=== PATIENT | female | born 1950 | race African-American/Black ===

== ENCOUNTER 2016-08-11 08:17 | Emergency (ER) | payer MEDICARE, OTHER ==
[~2016-08-11] VITALS: Ht 167.6 cm; Wt 54.4 kg
[~2016-08-11 08:17] MED LIST: AMLODIPINE BESYL5 MG; AMLODIPINE BESYL5 MG ORAL; ATENOLOL100 MG; ATENOLOL100 MG PO; ATIVAN1 MG ORAL; CARBIDOPA-LEVO1 EAC1; CLARITIN10 M2 ORAL; CLONIDINE1 EACH; CYCLOBENZAPRINE10 MG ORAL; DICYCLOMINE HCL20 M1; DICYCLOMINE HCL20 M1 PO; DILAUDID8 MG PO; DIOVAN40 MG PO; GLUCOPHAGE500 MG ORAL; HYDROCODON-ACE1 EA13; HYDROMORPHONE HC4 M1; JANUVIA100 MG; JANUVIA100 MG ORAL; KENALOG 0.1% CR15 GM; LANTUS SOL100 UNIT/1 SUBQ; METFORMIN HCL500 M1; NEURONTIN100 MG ORAL; NKM; NORCO 10/3251 EA ORAL; NORVASC5 MG ORAL; NOVOLOG100 UNIT/3 SUBQ; NOVOLOG100 UNITS1 SUBQ; PANCRELIPASE ORAL; PANTOPRAZOLE SO40 MG; PAROXETINE HCL40 MG; PAXIL40 MG PO; PROTONIX20 MG ORAL; PROTONIX40 MG ORAL; RANITIDINE HCL300 MG; SUMATRIPTAN SU100 MG; TOPIRAMATE25 MG ORAL; TRAMADOL HCL50 MG; TRAMADOL HCL50 MG ORAL; TRAZODONE HCL50 MG ORAL; ULTRAM50 MG ORAL; VICODIN ES 7.51 EACH PO; ZESTRIL20 MG ORAL
--- NOTE | 2016-08-11 08:46 | Emergency Room Report ---
History of Present Illness General Chief Complaint: Multiple Trauma/Fall Source: Patient Present Illness HPI Patient present with complaints of left-sided rib pain She reports that she has fallen out of her bed several times over the past 7 days Patient feels very weak Denies any headache denies any neck pain Denies any shortness of breath Pain is 8/10 Worse with touch Denies any vomiting or diarrhea Patient's description of the fall, sounds to be secondary to weakness however she does also report lightheadedness and what she describes as 'falling out' Not sure if this is regarding syncope Allergies: Coded Allergies: ACETAMINOPHEN (Verified Allergy, Severe, 12/18/12) ASPIRIN (Verified Allergy, Unknown, 11/10/10) CODEINE (Verified Allergy, Unknown, RASH, 10/25/11) MEPERIDINE (Verified Allergy, Unknown, 11/10/10) PENICILLINS (Verified Allergy, Unknown, RASH, 10/25/11) SHELLFISH (Verified Allergy, Unknown, 11/10/10) SULFA (SULFONAMIDE ANTIBIOTICS) (Verified Allergy, Unknown, 11/10/10) Uncoded Allergies: PENICILLIN (Allergy, Unknown, 09/22/15) Patient History Past Medical History: see triage record Pertinent Family History: none Reviewed Nursing Documentation: PMH: Agreed, PSxH: Agreed Nursing Documentation-PMH Hx Cardiac Problems: No Hx Hypertension: Yes Hx Pacemaker: No Hx Asthma: No Hx COPD: No Hx Diabetes: No Hx Cancer: No Hx Gastrointestinal Problems: Yes - pancreatitis Hx Dialysis: No History Of Psychiatric Problem: No Hx Neurological Problems: No Hx Cerebrovascular Accident: No Hx Parkinson's Disease: Yes Hx Seizures: No Hx Dizziness: Yes Hx Headaches: Yes Review of Systems All Other Systems: negative except mentioned in HPI Physical Exam Vital Signs Date Time Temp Pulse Resp B/P Pulse Ox O2 Delivery O2 Flow Rate FiO2 08/11/16 08:34 97.9 78 18 130/60 99 Room Air Sp02 EP Interpretation: reviewed, normal General Appearance: other - Patient appears weak and fragile Head: normocephalic, atraumatic Eyes: bilateral eye EOMI, bilateral eye PERRL ENT: hearing grossly normal, normal pharynx, TMs + canals normal, uvula midline Neck: full range of motion, supple, no meningismus, no bony tend Respiratory: lungs clear, normal breath sounds, no rhonchi, no respiratory distress, no retraction, no accessory muscle use Cardiovascular #1: normal peripheral pulses, regular rate, rhythm, no edema, no gallop, no JVD, no murmur Gastrointestinal: normal bowel sounds, non tender, soft, no mass, no organomegaly, non-distended, no guarding, no hernia, no pulsatile mass, no rebound Genitourinary: no CVA tenderness Musculoskeletal: other - Patient had discomfort on palpation of the left side of the rib cage area, diffusely lower rib mid chest area Neurologic: oriented x3, responsive, metal burnisher III-XII nml as tested, motor strength/ tone normal, sensory intact Psychiatric: mood/affect normal Skin: normal color, palpation normal, jaundice Lymphatic: normal inspection, no adenopathy Medical Decision Making Diagnostic Impression: Primary Impression: Contusion Additional Impression: opioid dependence ER Course Given the patient's multiple falls and what she describes as'falling out' Patient also appearing somewhat lethargic and possibly overmedicated I was concerned about the patient's presentation Cardiac workup was initiated Patient also requiring admission for further evaluation as I was concerned about her outpatient scenario Patient however at this time states that she had not received any pain medication and was tired of waiting Family member has arrived and the patient states that she wants to go home Patient is aware that going home at this time come to worsening symptoms further falls which to me to other trauma and injuries However the patient is awake at this time family is also at bedside and patient is leaving AGAINST MEDICAL ADVICE Labs Test 08/11/16 09:30 08/11/16 10:00 White Blood Count 5.5 K/UL (4.8-10.8) Red Blood Count 3.86 M/UL (4.20-5.40) Hemoglobin 12.0 G/DL (12.0-16.0) Hematocrit 37.5 % (37.0-47.0) Mean Corpuscular Volume 97 FL (80-99) Mean Corpuscular Hemoglobin 31.0 PG (27.0-31.0) Mean Corpuscular Hemoglobin Concent 32.0 G/DL (32.0-36.0) Red Cell Distribution Width 12.4 % (11.6-14.8) Platelet Count 302 K/UL (150-450) Mean Platelet Volume 6.2 FL (6.5-10.1) Neutrophils (%) (Auto) 58.1 % (45.0-75.0) Lymphocytes (%) (Auto) 29.8 % (20.0-45.0) Monocytes (%) (Auto) 9.0 % (1.0-10.0) Eosinophils (%) (Auto) 1.3 % (0.0-3.0) Basophils (%) (Auto) 1.8 % (0.0-2.0) Sodium Level 141 mEQ/L (135-145) Potassium Level 4.5 mEQ/L (3.4-4.9) Chloride Level 101 mEQ/L (98-107) Carbon Dioxide Level 20 mEQ/L (20-30) Anion Gap 20 (5-15) Blood Urea Nitrogen 21 mg/dL (7-23) Creatinine 1.3 mg/dL (0.5-0.9) Estimat Glomerular Filtration Rate 49.3 mL/min (>60) Glucose Level 219 mg/dL (74-106) Calcium Level 9.5 mg/dL (8.6-10.2) Total Bilirubin 0.3 mg/dL (0.0-1.2) Aspartate Amino Transf (AST/SGOT) 20 U/L (5-40) Alanine Aminotransferase (ALT/SGPT) 11 U/L (3-33) Alkaline Phosphatase 62 U/L (35-104) Total Creatine Kinase 52 U/L (26-140) Creatine Kinase MB 1.8 ng/mL (< 3.8) Creatine Kinase MB Relative Index 3.4 Troponin I < 0.30 ng/mL (<=0.30) Total Protein 7.8 g/dL (6.6-8.7) Albumin 4.1 g/dL (3.5-5.2) Globulin 3.7 g/dL Albumin/Globulin Ratio 1.1 (1.0-2.7) Urine Color Yellow Urine Appearance Clear Urine pH 5 (4.5-8.0) Urine Specific [place] 1.020 (1.005-1.035) Urine Protein 1+ (NEGATIVE) Urine Glucose (UA) Negative (NEGATIVE) Urine Ketones Negative (NEGATIVE) Urine Occult Blood Negative (NEGATIVE) Urine Nitrite Negative (NEGATIVE) Urine Bilirubin Negative (NEGATIVE) Urine Urobilinogen 1 MG/DL (0.0-1.0) Urine Leukocyte Esterase 3+ (NEGATIVE) Urine RBC 0-2 /HPF (0 - 2) Urine WBC 2-4 /HPF (0 - 2) Urine Squamous Epithelial Cells Few /LPF (NONE/OCC) Urine Bacteria Few /HPF (NONE) EKG Diagnostic Results Rate: normal Rhythm: NSR ST Segments: other - Nonspecific ST and T-wave changes Rhythm Strip Diag. Results EP Interpretation: yes Rate: 77 Rhythm: NSR, no PVC's, no ectopy Chest X-Ray Diagnostic Results EP Interpretation: Yes Findings: no consolidation, no effusion, no pneumothorax Number of Views: 1 Last Vital Signs Date Time Temp Pulse Resp B/P Pulse Ox O2 Delivery O2 Flow Rate FiO2 08/11/16 08:34 97.9 78 18 130/60 99 Room Air Status: improved Disposition: AGAINST MEDICAL ADVICE Condition: Improved EMIGDIO FUENTES D.O. Aug 11, 2016 08:46
[2016-08-11 09:30] VITALS: BP 139/71
[2016-08-11 10:14] LABS: BASOPHILS % (AUTO) 1.8 % (0.0-2.0); EOSINOPHILS % (AUTO) 1.3 % (0.0-3.0); LYMPHOCYTES % (AUTO) 29.8 % (20.0-45.0); MEAN CORPUSCULAR VOLUME 97 FL (80-99); MEAN PLATELET VOLUME 6.2 FL (6.5-10.1); NEUTROPHILS % (AUTO) 58.1 % (45.0-75.0); PLATELET COUNT 302 K/UL (150-450); RED BLOOD COUNT 3.86 M/UL (4.20-5.40); RED CELL DISTRIBUTION WIDTH 12.4 % (11.6-14.8); WHITE BLOOD COUNT 5.5 K/UL (4.8-10.8)
[2016-08-11] MEDS ORDERED: Morphine Sulfate 2mg/ml Inj IVP ONE (10:15)
[2016-08-11 10:18] LABS: APPEARANCE,URINE CLEAR; KETONES,URINE NEGATIVE (NEGATIVE); LEUKOCYTE ESTERASE ,URINE 3+ (NEGATIVE); NITRITE,URINE NEGATIVE (NEGATIVE); PH,URINE 5 (4.5-8.0); PROTEIN,URINE 1+ (NEGATIVE); UROBILINOGEN,URINE 1 MG/DL (0.0-1.0)
[2016-08-11 10:28] LABS: ALBUMIN/GLOBULIN RATIO 1.1 (1.0-2.7); CALCIUM 9.5 mg/dL (8.6-10.2); CREATININE 1.3 mg/dL (0.5-0.9); GLOMERULAR FILTRATION RATE 49.3 mL/min (>60); POTASSIUM 4.5 mEQ/L (3.4-4.9); TOTAL PROTEIN 7.8 g/dL (6.6-8.7); TROPONIN I < 0.30 ng/mL (<=0.30)
[2016-08-11 10:30] VITALS: BP 164/70
[2016-08-11 10:35] LABS: BACTERIA,URINE FEW /HPF; RBC,URINE 0-2 /HPF (0 - 2); SQUAMOUS EPITHELIAL CELL,UR FEW /LPF (NONE/OCC)
[2016-08-11 10:38] LABS: CKMB 1.8 ng/mL (< 3.8)
[2016-08-11 10:40] VITALS: BP 164/70
--- NOTE | 2016-08-15 11:45 | Diagnostic Imaging Report ---
Indication: Chest Pain Comparison: 08/20/13 A single view chest radiograph was obtained. Findings: Cardiomediastinal appearance is within normal limits for age. Pulmonary vascularity is appropriate. The diaphragmatic contour is smooth and costophrenic angles are sharp. No pleural effusions are identified. The bones are osteopenic. Impression: No acute findings
== END 2016-08-11 10:40 | disposition left against medical advice (07) ==
LOC: EMR 09:01 → EDBEDREQ 09:27 → CANBEDREQ 10:37 → EMR 10:40
DX: S20.219A Contusion of unspecified front wall of thorax, initial encounter (principal); W06.XXXA Fall from bed, initial encounter; Y92.9 Unspecified place or not applicable; F11.20 Opioid dependence, uncomplicated; I10 Essential (primary) hypertension; Z87.19 Personal history of other diseases of the digestive system; G20 Parkinson's disease; Z88.2 Allergy status to sulfonamides; Z88.6 Allergy status to analgesic agent; Z91.013 Allergy to seafood
CPT/HCPCS: 36415; 71010; 80053; 81003; 82550; 82553; 84484; 85025; 93005; 96374

== ENCOUNTER 2017-02-11 13:10 | Emergency (ER) | payer MEDICARE, OTHER ==
[~2017-02-11] VITALS: Ht 167.6 cm; Wt 55.3 kg
[2017-02-11 13:50] VITALS: BP 137/75
--- NOTE | 2017-02-11 15:03 | Diagnostic Imaging Report ---
Indication: Back pain Technique: Continuous helical transaxial imaging of the lumbar spine was obtained from the lung bases to the pubic symphysis. No IV contrast was administered. Coronal 2-D reformats were also obtained. Study obtained in a Siemens sensation [address] Total Dose length Product (DLP): [address] Dose Index Volume (CTDIvol): 11 mGy Comparison: None Findings: The patient is had laminectomies at L4 and L5. 3 level instrumented fusion with pedicle screws and fusion rods are demonstrated at L4, L5 and S1 bilaterally. Hardware position and alignment appear satisfactory. The study was done without intravenous or intrathecal contrast. There is no obvious fluid collection identified. There is no obvious soft tissue swelling. There is no evidence of an acute fracture. The bones are osteopenic. Aorta is moderately calcified. Impression: No acute injury identified. Status post L4-5 and L5-S1 posterior fusion and laminectomy. Hardware alignment and position appear satisfactory. Osteopenia Atherosclerotic disease The CT scanner at [facility] is accredited by the [employer] and the scans are performed using dose optimization techniques as appropriate to a performed exam including Automatic Exposure control.
--- NOTE | 2017-02-11 15:08 | Diagnostic Imaging Report ---
Indication: Neck pain. Technique: Continuous helical imaging of the cervical spine was obtained transaxially from the skull base to the upper thoracic spine. 2-D coronal and sagittal reformatted images were obtained. Total Dose length Product (DLP): [address] Dose Index Volume (CTDIvol): 12 mGy Comparison: None Findings: Bones are osteopenic. There is no malalignment or acute fracture identified. Very mild narrowing of some of the intervertebral discs are noted. There is no soft tissue swelling identified. The dens is intact. Some degeneration and arthritis involving the facet joints are noted within the midportion of the cervical spine. Focus of calcification noted in the left thyroid gland. Some calcific plaque noted at the bifurcation of the carotid arteries below the neck. Impression: No acute injury identified. Mild degenerative changes as described above. Osteopenia Atherosclerotic disease. Small calcific focus in the left aspect of the thyroid gland The CT scanner at [facility] is accredited by the [employer] and the scans are performed using dose optimization techniques as appropriate to a performed exam including Automatic Exposure control.
[2017-02-11] MEDS ORDERED: ROBAXIN-750750 MG PO (15:21)
[2017-02-11 15:26] VITALS: BP 141/68
[2017-02-11 15:28] VITALS: BP 141/68
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
== END 2017-02-11 15:29 | disposition home or self-care (01) ==
LOC: EMR 13:38
DX: S39.012A Strain of muscle, fascia and tendon of lower back, initial encounter (principal); S16.1XXA Strain of muscle, fascia and tendon at neck level, initial encounter; V49.50XA Passenger injured in collision with unspecified motor vehicles in traffic accident, initial encounter; Y92.89 Other specified places as the place of occurrence of the external cause; I10 Essential (primary) hypertension; G20 Parkinson's disease; Z88.0 Allergy status to penicillin; Z88.6 Allergy status to analgesic agent; Z88.2 Allergy status to sulfonamides; Z91.013 Allergy to seafood; M85.88 Other specified disorders of bone density and structure, other site; M85.869 Other specified disorders of bone density and structure, unspecified lower leg; Z98.1 Arthrodesis status
CPT/HCPCS: 72125; 72131; 99284

== ENCOUNTER 2018-04-03 14:00 | Inpatient (IN) | payer MEDICARE, OTHER ==
[~2018-04-03] VITALS: Ht 167.6 cm; Wt 45.8 kg
[~2018-04-03 14:00] MED LIST changes: +ROBAXIN-750750 MG PO
[2018-04-03 14:27] VITALS: BP 113/73
[2018-04-03 15:11] LABS: BASOPHILS % (AUTO) 1.5 % (0.0-2.0); EOSINOPHILS % (AUTO) 2.9 % (0.0-3.0); HEMATOCRIT 34.5 % (37.0-47.0); HEMOGLOBIN 11.1 G/DL (12.0-16.0); LYMPHOCYTES % (AUTO) 33.2 % (20.0-45.0); MEAN CORPUSCULAR VOLUME 95 FL (80-99); MONOCYTES % (AUTO) 8.9 % (1.0-10.0); NEUTROPHILS % (AUTO) 53.5 % (45.0-75.0); PLATELET COUNT 245 K/UL (150-450); RED BLOOD COUNT 3.63 M/UL (4.20-5.40); RED CELL DISTRIBUTION WIDTH 12.7 % (11.6-14.8); WHITE BLOOD COUNT 7.1 K/UL (4.8-10.8)
[2018-04-03 15:32] VITALS: BP 131/81
--- NOTE | 2018-04-03 15:33 | Diagnostic Imaging Report ---
Indication: Pain, status post fall Technique: spiral acquisitions obtained through the brain. Angled axial and coronal 5 x 5 mm slices were reconstructed. No IV contrast utilized. Radiation dose was minimized using automated exposure control Total dose length product 1368.94 mGycm. CTDIvol(s) 70.38 mGy Comparison: 11/13/2011 FINDINGS: No acute hemorrhage or edema. No mass effect or midline shift. There is age-related enlargement of the ventricles and extra axial CSF spaces. There is minimal periventricular deep white matter low-attenuation consistent with chronic ischemic change. Normal chong-white differentiation. There is evidence of prior bilateral cataract surgery.. Visualized sinuses are unremarkable. Intact calvarium. No significant interim change IMPRESSION: Chronic and age-related changes. Negative for acute intracranial bleed or mass effect The CT scanner at [facility] is accredited by the [employer] and the scans are performed using protocols designed to limit radiation exposure to as low as reasonably achievable to attain images of sufficient resolution adequate for diagnostic evaluation
--- NOTE | 2018-04-03 15:34 | Diagnostic Imaging Report ---
Indication: Chest pain Technique: One view of the chest Comparison: 08/11/2016 Findings: The right hemidiaphragm is elevated. The lungs and pleural spaces are clear. Heart size is normal. There are epigastric and right upper quadrant surgical clips. Findings are unchanged Impression: No acute process
[2018-04-03 15:45] LABS: ALBUMIN 3.6 G/DL (3.4-5.0); ANION GAP 11 mmol/L (5-15); BLOOD UREA NITROGEN 14 mg/dL (7-18); CALCIUM 9.4 MG/DL (8.5-10.1); CARBON DIOXIDE 23 MMOL/L (21-32); CHLORIDE 108 MMOL/L (98-107); CREATINE KINASE 97 U/L (26-308); CREATININE 0.9 MG/DL (0.55-1.30); POTASSIUM 4.3 MMOL/L (3.5-5.1); SODIUM 142 MMOL/L (136-145)
[2018-04-03 16:03] LABS: ALANINE AMINOTRANSFERASE 23 U/L (12-78); ALKALINE PHOSPHATASE 84 U/L (46-116); ASPARTATE AMINO TRANSFERASE 29 U/L (15-37); BILIRUBIN,TOTAL 0.6 MG/DL (0.2-1.0)
[2018-04-03 16:05] LABS: ALBUMIN/GLOBULIN RATIO 0.8 (1.0-2.7)
--- NOTE | 2018-04-03 16:12 | Diagnostic Imaging Report ---
Indication: Bilateral leg pain and swelling Technique: Grayscale and duplex images of the bilateral lower extremity deep veins Comparison: none Findings: Bilaterally, grayscale and duplex images demonstrate no evidence of intraluminal thrombus. Normal phasic Doppler waveforms, demonstrating normal augmentation response, no evidence of valvular insufficiency. Patent greater saphenous veins bilaterally, with normal antegrade flow. Normal compressibility of all deep venous structures Impression: Negative for evidence of lower extremity deep venous thrombosis
--- NOTE | 2018-04-03 16:53 | Emergency Room Report ---
History of Present Illness General Chief Complaint: Generalized Weakness Source: Patient Present Illness HPI This patient was sent and by her primary care physician. Apparently she was seen in office today and was sent here to the emergency department to be admitted to the hospital for further workup. Apparently over the past couple months patient has had multiple falls. She has generalized weakness. She also has persistent bilateral lower extremity swelling and some right arm and hand swelling. Of note, 5 months ago the patient fell out of bed and was down for several hours and has a residual nerve palsy of her right arm. She also has developed a wound on her lower back. She is also developed diarrhea over the past several weeks. She denies fever or chills. She denies nausea or vomiting. She has no other complaints. Allergies: Coded Allergies: ACETAMINOPHEN (Verified Allergy, Severe, 12/18/12) ASPIRIN (Verified Allergy, Unknown, 11/10/10) CODEINE (Verified Allergy, Unknown, RASH, 10/25/11) MEPERIDINE (Verified Allergy, Unknown, 11/10/10) PENICILLINS (Verified Allergy, Unknown, RASH, 10/25/11) SHELLFISH (Verified Allergy, Unknown, 11/10/10) SULFA (SULFONAMIDE ANTIBIOTICS) (Verified Allergy, Unknown, 11/10/10) Uncoded Allergies: PENICILLIN (Allergy, Unknown, 09/22/15) Patient History Past Medical History: see triage record, DM, HTN, other - Parkinsons Past Surgical History: ja, hysterectomy Social History: Denies: smoking, alcohol use, drug use Reviewed Nursing Documentation: PMH: Agreed; PSxH: Agreed Nursing Documentation-PMH Past Medical History: No History, Except For Hx Cardiac Problems: No Hx Hypertension: Yes Hx Pacemaker: No Hx Asthma: No Hx COPD: No Hx Diabetes: Yes Hx Cancer: No Hx Gastrointestinal Problems: Yes - pancreatitis Hx Dialysis: No Hx Neurological Problems: No Hx Cerebrovascular Accident: No Hx Parkinson's Disease: Yes Hx Seizures: No Hx Dizziness: Yes Hx Headaches: Yes Review of Systems All Other Systems: negative except mentioned in HPI Physical Exam Vital Signs Date Time Temp Pulse Resp B/P (MAP) Pulse Ox O2 Delivery O2 Flow Rate FiO2 04/03/18 14:07 98.0 79 17 113/73 98 Room Air 98.1 Sp02 EP Interpretation: reviewed, normal General Appearance: no apparent distress, alert, GCS 15, non-toxic Head: normocephalic, atraumatic Eyes: bilateral eye normal inspection, bilateral eye PERRL ENT: hearing grossly normal, normal pharynx, no angioedema, normal voice Neck: full range of motion, supple/symm/no masses Respiratory: chest non-tender, lungs clear, normal breath sounds, no respiratory distress, no retraction, no accessory muscle use, speaking full sentences Cardiovascular #1: regular rate, rhythm, no edema, edema - 1+edema BLE Gastrointestinal: normal bowel sounds, non tender, soft, non-distended, no guarding, no rebound Rectal: deferred Musculoskeletal: back normal, gait/station normal, normal range of motion, non- tender, calf tenderness Neurologic: alert, oriented x3, responsive, sensory intact, speech normal, other - At baseline Psychiatric: judgement/insight normal, memory normal, mood/affect normal, no suicidal/homicidal ideation Skin: normal color, no rash, warm/dry, well hydrated, other - Stage 2 sacral DU Medical Decision Making Diagnostic Impression: Primary Impression: Recurrent falls Additional Impressions: Generalized weakness Parkinson's disease UTI (urinary tract infection) ER Course This patient is found have a urinary tract infection. She is given broad- spectrum antibiotics. There is also concerned that this patient has bilateral lower extremity edema, multiple falls and generalized weakness. This may be related to progression of the patient's Parkinson's disease. Bilateral lower extremity venous ultrasound showed no evidence of DVT. The right upper extremity swelling is likely secondary to the nerve palsy of the right arm and the lack of movement in that arm with a dependent edema. The patient is admitted for further monitoring, evaluation and treatment. Laboratory Tests Test 04/03/18 14:45 White Blood Count 7.1 K/UL (4.8-10.8) Red Blood Count 3.63 M/UL (4.20-5.40) L Hemoglobin 11.1 G/DL (12.0-16.0) L Hematocrit 34.5 % (37.0-47.0) L Mean Corpuscular Volume 95 FL (80-99) Mean Corpuscular Hemoglobin 30.5 PG (27.0-31.0) Mean Corpuscular Hemoglobin Concent 32.1 G/DL (32.0-36.0) Red Cell Distribution Width 12.7 % (11.6-14.8) Platelet Count 245 K/UL (150-450) Mean Platelet Volume 5.8 FL (6.5-10.1) L Neutrophils (%) (Auto) 53.5 % (45.0-75.0) Lymphocytes (%) (Auto) 33.2 % (20.0-45.0) Monocytes (%) (Auto) 8.9 % (1.0-10.0) Eosinophils (%) (Auto) 2.9 % (0.0-3.0) Basophils (%) (Auto) 1.5 % (0.0-2.0) Sodium Level 142 MMOL/L (136-145) Potassium Level 4.3 MMOL/L (3.5-5.1) Chloride Level 108 MMOL/L (98-107) H Carbon Dioxide Level 23 MMOL/L (21-32) Anion Gap 11 mmol/L (5-15) Blood Urea Nitrogen 14 mg/dL (7-18) Creatinine 0.9 MG/DL (0.55-1.30) Estimate Glomerular Filtration Rate > 60 mL/min (>60) Glucose Level 66 MG/DL (74-106) L Calcium Level 9.4 MG/DL (8.5-10.1) Total Bilirubin 0.6 MG/DL (0.2-1.0) Aspartate Amino Transferase (AST) 29 U/L (15-37) Alanine Aminotransferase (ALT) 23 U/L (12-78) Alkaline Phosphatase 84 U/L (46-116) Total Creatine Kinase 97 U/L (26-308) Creatine Kinase MB 1.0 NG/ML (0.0-3.6) Creatine Kinase MB Relative Index 1.0 Troponin I 0.000 ng/mL (0.000-0.056) Total Protein 8.4 G/DL (6.4-8.2) H Albumin 3.6 G/DL (3.4-5.0) Globulin 4.8 g/dL Albumin/Globulin Ratio 0.8 (1.0-2.7) L EKG Diagnostic Results Rate: normal Rhythm: NSR ST Segments: no acute changes Other Impression IRBBB Rhythm Strip Diag. Results EP Interpretation: yes Rate: 70's Rhythm: NSR, no PVC's, no ectopy Chest X-Ray Diagnostic Results Chest X-Ray Diagnostic Results : Chest X-Ray Ordered: Yes # of Views/Limited/Complete: 1 View Indication: Other - weakness Interpretation: no consolidation, no effusion, no pneumothorax, no acute cardiopulmonary disease, other - Elevated R. hemidiaphragm Impression: No acute disease Electronically Signed by: Rashida Last Vital Signs Date Time Temp Pulse Resp B/P (MAP) Pulse Ox O2 Delivery O2 Flow Rate FiO2 04/03/18 15:32 98.1 17 131/81 98 Room Air 98.1 04/03/18 14:07 79 Disposition: ADMITTED INPATIENT Condition: Stable Referrals: NON PHYSICIAN (PCP) Alciia Gonzalez DO Apr 03, 2018 16:53
[2018-04-03 16:56] LABS: APPEARANCE,URINE SLIGHTLY CLOUDY; BILIRUBIN, URINE NEGATIVE (NEGATIVE); GLUCOSE, URINE (UA) NEGATIVE (NEGATIVE); KETONES,URINE NEGATIVE (NEGATIVE); LEUKOCYTE ESTERASE ,URINE 3+ (NEGATIVE); NITRITE,URINE NEGATIVE (NEGATIVE); PH,URINE 5 (4.5-8.0); PROTEIN,URINE 3+ (NEGATIVE); UROBILINOGEN,URINE NORMAL MG/DL (0.0-1.0)
[2018-04-03 16:59] LABS: COLOR,URINE YELLOW
[2018-04-03] MEDS ORDERED: Zolpidem 5mg tab ORAL PRN (17:15)
[2018-04-03] MEDS ORDERED: Miralax 17gm pkt ORAL PRN (17:15)
[2018-04-03] MEDS ORDERED: Cyclobenzaprine 10mg Tab ORAL PRN (17:15)
[2018-04-03] MEDS ORDERED: Mylanta II UD 30ml ORAL PRN (17:15)
[2018-04-03] MEDS ORDERED: LORazepam Inj 2mg/ml 1ml IV PRN (17:15)
[2018-04-03] MEDS ORDERED: cefTRIAXone 1 GM in D5W 55 ML IVPB ONE (18:00)
[2018-04-03 18:15] VITALS: BP 119/71
[2018-04-03] MEDS: Morphine Sulfate 2mg/ml Inj IVP PRN (19:47)
[2018-04-03 20:28] VITALS: BP 146/74
[2018-04-03] MEDS: NovoLOG Insulin Flexpen SUBQ SCH (21:00)
[2018-04-03] MEDS: Heparin 5000 units/ml inj SUBQ SCH (21:16)
[2018-04-04 00:55] VITALS: BP 135/70
[2018-04-04] MEDS: Morphine Sulfate 2mg/ml Inj IVP PRN ×5 (01:08→23:15)
[2018-04-04 04:50] VITALS: BP 140/72
[2018-04-04] MEDS: NovoLOG Insulin Flexpen SUBQ SCH ×4 (06:30→21:00)
[2018-04-04 07:10] LABS: BASOPHILS % (AUTO) 0.7 % (0.0-2.0); EOSINOPHILS % (AUTO) 4.2 % (0.0-3.0); HEMATOCRIT 32.5 % (37.0-47.0); HEMOGLOBIN 10.6 G/DL (12.0-16.0); LYMPHOCYTES % (AUTO) 28.9 % (20.0-45.0); MEAN CORPUSCULAR VOLUME 94 FL (80-99); NEUTROPHILS % (AUTO) 58.2 % (45.0-75.0); PLATELET COUNT 281 K/UL (150-450); RED BLOOD COUNT 3.45 M/UL (4.20-5.40); RED CELL DISTRIBUTION WIDTH 12.5 % (11.6-14.8); WHITE BLOOD COUNT 5.5 K/UL (4.8-10.8)
[2018-04-04 07:58] LABS: ALANINE AMINOTRANSFERASE 22 U/L (12-78); ALBUMIN 3.1 G/DL (3.4-5.0); ALKALINE PHOSPHATASE 79 U/L (46-116); ANION GAP 10 mmol/L (5-15); ASPARTATE AMINO TRANSFERASE 17 U/L (15-37); BILIRUBIN,TOTAL 0.3 MG/DL (0.2-1.0); BLOOD UREA NITROGEN 7 mg/dL (7-18); CALCIUM 9.6 MG/DL (8.5-10.1); CARBON DIOXIDE 24 MMOL/L (21-32); CHLORIDE 108 MMOL/L (98-107); CHOLESTEROL 115 MG/DL (< 200); CREATININE 0.8 MG/DL (0.55-1.30); HDL CHOLESTEROL 46 MG/DL (40-60); PHOSPHORUS 3.5 MG/DL (2.5-4.9); POTASSIUM 3.8 MMOL/L (3.5-5.1); SODIUM 142 MMOL/L (136-145); TRIGLYCERIDES 154 MG/DL (30-150)
[2018-04-04] MEDS: Heparin 5000 units/ml inj SUBQ SCH (08:57)
[2018-04-04 09:00] VITALS: BP 141/79
--- NOTE | 2018-04-04 12:04 | History and Physical ---
History of Present Illness General Date patient seen: Apr 04, 2018 Time patient seen: 11:49 Reason for Hospitalization: Generalized Weakness Present Illness HPI 68 year old woman with history of type 2 DM, HTN, Parkinson's disease, chronic pancreatitis s/p Whipple procedure, chronic back pain on opiates, chronic fatigue, IBS who presents with 2 weeks of right arm weakness, general weakness, falls. She normally ambulates independently. In the ED she was noted to have a mildly abnormal UA, although she denies irritative urinary symptoms, was given a dose of ceftriaxone and referred for admission. Allergies: Coded Allergies: ACETAMINOPHEN (Verified Allergy, Severe, 12/18/12) ASPIRIN (Verified Allergy, Unknown, 11/10/10) CODEINE (Verified Allergy, Unknown, RASH, 10/25/11) MEPERIDINE (Verified Allergy, Unknown, 11/10/10) PENICILLINS (Verified Allergy, Unknown, RASH, 10/25/11) SHELLFISH (Verified Allergy, Unknown, 11/10/10) SULFA (SULFONAMIDE ANTIBIOTICS) (Verified Allergy, Unknown, 11/10/10) Uncoded Allergies: PENICILLIN (Allergy, Unknown, 09/22/15) Medication History Scheduled Lipase/Amylase/Protease (Pancrelipase Dr 5,000 Unit Cap), 2 EA ORAL THREE TIMES A DAY Scheduled PRN Cyclobenzaprine Hcl* (Flexeril*), 10 MG ORAL TID PRN for Muscle Spasm Miscellaneous Medications Amlodipine Besylate* (Amlodipine Besylate*), (Reported) Atenolol* (Tenormin*), (Reported) Carbidopa/Levodopa (Carbidopa-Levodopa 25-100 Tab), (Reported) Hydrocodone Bit/Acetaminophen 10-325* (Hydrocodon-Acetaminophn 10-325*), ( Reported) Metformin Hcl* (Metformin Hcl*), (Reported) Pantoprazole* (Pantoprazole*), (Reported) Paroxetine Hcl (Paroxetine Hcl), (Reported) Sitagliptin (Januvia), (Reported) Discontinued Medications Clonidine (Clonidine), (Reported) Discontinued Reason: Pt stopped taking med Dicyclomine Hcl (Dicyclomine Hcl), (Reported) Discontinued Reason: Pt stopped taking med Hydromorphone Hcl (Hydromorphone Hcl), (Reported) Discontinued Reason: Medication dose changed Insulin Aspart (Novolog Flexpen), 0 UNITS SUBQ BEFORE MEALS AND HS Discontinued Reason: Pt stopped taking med Methocarbamol* (Robaxin-750*), 750 MG PO TID Discontinued Reason: Pt stopped taking med Ranitidine Hcl (Ranitidine Hcl), (Reported) Discontinued Reason: Pt stopped taking med Sumatriptan Succinate (Sumatriptan Succinate), (Reported) Discontinued Reason: Pt stopped taking med Tramadol Hcl* (Ultram*), (Reported) Discontinued Reason: Pt stopped taking med Triamcinolone Acet (Triamcinolone Acetonide), (Reported) Discontinued Reason: Pt stopped taking med Patient History Healthcare decision maker N Resuscitation status Full Code Advanced Directive on File No Family History Family History: FHx: esophageal cancer Review of Systems Constitutional: Denies: no symptoms, see HPI, chills, sweats, fever, malaise, weakness, other Eye: Denies: no symptoms, see HPI, eye pain, blurred vision, tearing, double vision, nose pain, nose congestion, acuity changes, discharge, other ENT: Denies: no symptoms, see HPI, ear pain, ear discharge, nose pain, nose congestion, throat pain, throat swelling, mouth pain, hearing loss, nasal discharge, other Respiratory: Denies: no symptoms, see HPI, cough, orthopnea, shortness of breath, stridor, wheezing, IBARRA, sputum, other Cardiovascular: Denies: no symptoms, see HPI, chest pain, edema, palpitations, syncope, PND, other Gastrointestinal: Denies: no symptoms, see HPI, abdominal pain, constipation, diarrhea, nausea, vomiting, melena, hematemesis, other Genitourinary: Denies: no symptoms, see HPI, discharge, dysuria, frequency, hematuria, pain, retention, incontinence, urgency, vag bleed/dc, other Musculoskeletal: Denies: no symptoms, see HPI, back pain, gout, joint pain, joint swelling, muscle pain, muscle stiffness, other Skin: Denies: no symptoms, see HPI, rash, change in color, change in hair/nails , dryness, lesions, other Psychiatric: Denies: no symptoms, see HPI, prior hx, anxiety, depressed feelings, emotional problems, SI, HI, hallucinations, other Neurological: Reports: no symptoms, see HPI, headache, numbness, paresthesia, seizure, tingling, tremors, focal weakness, syncope, dizziness, other Endocrine: Denies: no symptoms, see HPI, excessive sweating, flushing, intolerance to temperature, increased thirst, increased urine, unexplained weight loss, other Hematologic/Lymphatic: Denies: no symptoms, see HPI, anemia, blood clots, easy bleeding, easy bruising, swollen glands, diathesis, other Physical Exam Last 24 Hour Vital Signs Date Time Temp Pulse Resp B/P (MAP) Pulse Ox O2 Delivery O2 Flow Rate FiO2 04/04/18 10:40 98.2 04/04/18 06:16 98.2 04/04/18 04:50 98.2 69 17 140/72 (94) 97 98.2 04/04/18 00:55 98.3 75 18 135/70 (91) 98 98.3 04/03/18 20:28 98.3 72 17 146/74 (98) 98 98.3 04/03/18 19:09 Room Air 04/03/18 18:21 98.1 17 118/65 98 Room Air 98.1 04/03/18 18:15 96.8 85 18 119/71 (87) 95 96.8 04/03/18 15:32 98.1 17 131/81 98 Room Air 98.1 04/03/18 14:27 98.1 17 113/73 98 Room Air 98.1 04/03/18 14:07 98.0 79 17 113/73 98 Room Air 98.1 Intake and Output 04/03/18 04/04/18 19:00 07:00 Intake Total 0 ml 660 ml Output Total 4 ml Balance 0 ml 656 ml Intake Oral 0 ml Other 660 ml Output Urine Total 4 ml # Bowel Movements 2 Laboratory Tests Test 04/03/18 14:45 04/03/18 16:45 04/04/18 06:35 White Blood Count 7.1 K/UL (4.8-10.8) 5.5 K/UL (4.8-10.8) Red Blood Count 3.63 M/UL (4.20-5.40) L 3.45 M/UL (4.20-5.40) L Hemoglobin 11.1 G/DL (12.0-16.0) L 10.6 G/DL (12.0-16.0) L Hematocrit 34.5 % (37.0-47.0) L 32.5 % (37.0-47.0) L Mean Corpuscular Volume 95 FL (80-99) 94 FL (80-99) Mean Corpuscular Hemoglobin 30.5 PG (27.0-31.0) 30.6 PG (27.0-31.0) Mean Corpuscular Hemoglobin Concent 32.1 G/DL (32.0-36.0) 32.5 G/DL (32.0-36.0) Red Cell Distribution Width 12.7 % (11.6-14.8) 12.5 % (11.6-14.8) Platelet Count 245 K/UL (150-450) 281 K/UL (150-450) Mean Platelet Volume 5.8 FL (6.5-10.1) L 5.3 FL (6.5-10.1) L Neutrophils (%) (Auto) 53.5 % (45.0-75.0) 58.2 % (45.0-75.0) Lymphocytes (%) (Auto) 33.2 % (20.0-45.0) 28.9 % (20.0-45.0) Monocytes (%) (Auto) 8.9 % (1.0-10.0) 8.0 % (1.0-10.0) Eosinophils (%) (Auto) 2.9 % (0.0-3.0) 4.2 % (0.0-3.0) H Basophils (%) (Auto) 1.5 % (0.0-2.0) 0.7 % (0.0-2.0) Sodium Level 142 MMOL/L (136-145) 142 MMOL/L (136-145) Potassium Level 4.3 MMOL/L (3.5-5.1) 3.8 MMOL/L (3.5-5.1) Chloride Level 108 MMOL/L (98-107) H 108 MMOL/L (98-107) H Carbon Dioxide Level 23 MMOL/L (21-32) 24 MMOL/L (21-32) Anion Gap 11 mmol/L (5-15) 10 mmol/L (5-15) Blood Urea Nitrogen 14 mg/dL (7-18) 7 mg/dL (7-18) Creatinine 0.9 MG/DL (0.55-1.30) 0.8 MG/DL (0.55-1.30) Estimat Glomerular Filtration Rate > 60 mL/min (>60) > 60 mL/min (>60) Glucose Level 66 MG/DL (74-106) L 124 MG/DL (74-106) H Calcium Level 9.4 MG/DL (8.5-10.1) 9.6 MG/DL (8.5-10.1) Total Bilirubin 0.6 MG/DL (0.2-1.0) 0.3 MG/DL (0.2-1.0) Aspartate Amino Transf (AST/SGOT) 29 U/L (15-37) 17 U/L (15-37) Alanine Aminotransferase (ALT/SGPT) 23 U/L (12-78) 22 U/L (12-78) Alkaline Phosphatase 84 U/L (46-116) 79 U/L (46-116) Total Creatine Kinase 97 U/L (26-308) Creatine Kinase MB 1.0 NG/ML (0.0-3.6) Creatine Kinase MB Relative Index 1.0 Troponin I 0.000 ng/mL (0.000-0.056) Total Protein 8.4 G/DL (6.4-8.2) H 7.4 G/DL (6.4-8.2) Albumin 3.6 G/DL (3.4-5.0) 3.1 G/DL (3.4-5.0) L Globulin 4.8 g/dL 4.3 g/dL Albumin/Globulin Ratio 0.8 (1.0-2.7) L Urine Color Yellow Urine Appearance Slightly cloudy Urine pH 5 (4.5-8.0) Urine Specific [place] 1.015 (1.005-1.035) Urine Protein 3+ (NEGATIVE) H Urine Glucose (UA) Negative (NEGATIVE) Urine Ketones Negative (NEGATIVE) Urine Blood 5+ (NEGATIVE) H Urine Nitrite Negative (NEGATIVE) Urine Bilirubin Negative (NEGATIVE) Urine Urobilinogen Normal MG/DL (0.0-1.0) Urine Leukocyte Esterase 3+ (NEGATIVE) H Urine RBC 10-15 /HPF (0 - 2) H Urine WBC 40-60 /HPF (0 - 2) H Urine Squamous Epithelial Cells Few /LPF (NONE/OCC) Urine Amorphous Sediment Few /LPF (NONE) H Urine Bacteria Moderate /HPF (NONE) H Phosphorus Level 3.5 MG/DL (2.5-4.9) Magnesium Level 1.6 MG/DL (1.8-2.4) L Triglycerides Level 154 MG/DL (30-150) H Cholesterol Level 115 MG/DL (< 200) LDL Cholesterol 50 mg/dL (<100) HDL Cholesterol 46 MG/DL (40-60) Cholesterol/HDL Ratio 2.5 (3.3-4.4) L Microbiology Date/Time Source Procedure Growth Status 04/03/18 22:35 Wound Gram Stain - Final Resulted 04/03/18 22:35 Wound Wound Culture Pending Resulted 04/03/18 16:45 Urine,Clean Catch Urine Culture - Preliminary Resulted Height (Feet): 5 Height (Inches): 6.00 Weight (Pounds): 112 Medications Current Medications Medications (Trade) Dose Ordered Sig/Shantell Route PRN Reason Start Time Stop Time Status Last Admin Dose Admin Al Hydroxide/Mg Hydroxide (Mylanta II) 30 ml Q6H PRN ORAL dyspepsia 04/03/18 17:15 05/03/18 17:14 Cyclobenzaprine HCl (Flexeril) 10 mg Q8H PRN ORAL Muscle Spasm 04/03/18 17:15 05/03/18 17:14 Dextrose (Dextrose 50%) 25 ml PRN IV Hypoglycemia 04/03/18 17:30 05/03/18 17:29 Dextrose (Dextrose 50%) 25 ml STAT PRN IV Hypoglycemia 04/04/18 11:45 05/04/18 11:44 UNV Dextrose (Dextrose 50%) 50 ml PRN IV hypoglycemia 04/03/18 17:30 05/03/18 17:29 Dextrose (Dextrose 50%) 50 ml STAT PRN IV Hypoglycemia 04/04/18 11:45 05/04/18 11:44 UNV Enoxaparin Sodium (Lovenox) 40 mg Q24H SUBQ 04/04/18 12:45 05/04/18 12:44 UNV Heparin Sodium (Porcine) (Heparin 5000 units/ml) 5,000 units EVERY 12 HOURS SUBQ 04/03/18 21:00 05/03/18 20:59 04/04/18 08:57 Insulin Aspart (NovoLOG) BEFORE MEALS AND HS SUBQ 04/03/18 21:00 05/03/18 20:59 Insulin Aspart (NovoLOG) BEFORE MEALS AND HS SUBQ 04/04/18 16:30 05/04/18 16:29 UNV Lorazepam (Ativan 2mg/ml 1ml) 0.5 mg Q4H PRN IV For Anxiety 04/03/18 17:15 04/10/18 17:14 Morphine Sulfate (Morphine Sulfate) 1 mg Q4H PRN IVP PAIN 4-10 04/03/18 17:15 04/10/18 17:14 04/04/18 10:40 Ondansetron HCl (Zofran) 4 mg Q6H PRN IVP Nausea & Vomiting 04/03/18 17:15 05/03/18 17:14 Polyethylene Glycol (Miralax) 17 gm HSPRN PRN ORAL Constipation 04/03/18 17:15 05/03/18 17:14 Zolpidem Tartrate (Ambien) 5 mg HSPRN PRN ORAL Insomnia 04/03/18 17:15 04/10/18 17:14 Too Dai MD Apr 04, 2018 12:04
[2018-04-04] MEDS: Pancrease Cap ORAL SCH ×2 (13:16→18:14)
[2018-04-04] MEDS: Levodopa/Carbidopa 25/100 tab ORAL SCH ×2 (13:16→18:14)
[2018-04-04] MEDS ORDERED: HYDROcodone/Acetamin 10/325 tab ORAL PRN ×3 (14:30→20:45)
--- NOTE | 2018-04-04 14:47 | Cardiology Report ---
APPROVED REPORT EKG Measurement Heart [id number] Normal sinus rhythm Left axis deviation Incomplete right bundle branch block Septal infarct, age undetermined Abnormal ECG
[2018-04-04] MEDS ORDERED: NovoLOG Insulin Flexpen SUBQ SCH (16:30)
[2018-04-04] MEDS: metFORMIN 500mg tab ORAL SCH (18:15)
[2018-04-04 21:00] VITALS: BP 153/82
[2018-04-04] MEDS: Enoxaparin 40mg Inj SUBQ SCH (21:26)
[2018-04-04] MEDS: Norco 5mg/325mg tab ORAL PRN (21:33)
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
[2018-04-05] VITALS: BP 165/82
[2018-04-05] MEDS: Norco 5mg/325mg tab ORAL PRN (01:40)
[2018-04-05 04:00] VITALS: BP_SYST 128; BP_SYST 140; BP_DIAS 83
[2018-04-05] MEDS: NovoLOG Insulin Flexpen SUBQ SCH ×3 (05:52→16:30)
[2018-04-05 08:00] VITALS: BP 135/79
[2018-04-05] MEDS: metFORMIN 500mg tab ORAL SCH (08:41)
[2018-04-05] MEDS: Pancrease Cap ORAL SCH ×2 (08:41→12:41)
[2018-04-05] MEDS: Levodopa/Carbidopa 25/100 tab ORAL SCH ×2 (08:42→12:41)
[2018-04-05] MEDS: Enoxaparin 40mg Inj SUBQ SCH (08:43)
[2018-04-05] MEDS ORDERED: PARoxetine 20mg tab ORAL SCH (09:00)
[2018-04-05 12:00] VITALS: BP 130/88
--- NOTE | 2018-04-05 12:19 | Discharge Summary ---
Discharge Summary Hospital Course Date of Admission Apr 03, 2018 at 15:20 Date of Discharge 04/05/18 Admitting Diagnosis generalized weakness, leg swelling, fall HPI Demetra Lara is a 68 year old female who was admitted on Apr 03, 2018 at 15:20 for Generalized Weakness,Leg Swelling,Fall Consultations Neurology PT Procedures None Hospital Course Patient was admitted to the medical service with general weakness, frequent falls and right sided arm weakness. She was seen by Neurology who felt her symptoms were related to cervical spine trauma and brachial plexus injury. She was seen by PT who recommended rehab facility or home with PT. Patient declined rehab facility and case management has set up home services/PT. She will need to follow up with her PCP and Neurology as an outpatient Discharge Condition Upon Discharge: stable Discharge Disposition Patient was discharged to home with home care Discharge Diagnoses: (1) Brachial plexopathy Discharge Instructions Discharge Instructions Follow up with: Primary care physician and Neurology Too Dai MD Apr 05, 2018 12:19
[2018-04-05 16:00] VITALS: BP 128/76
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
== END 2018-04-05 17:15 | disposition home health service (06) | DRG 74 ==
LOC: EMR 14:53 → 3E 15:20 → EDBEDREQ 17:11 → 3E 04-05 03:59
DX: G54.0 Brachial plexus disorders (principal); R53.1 Weakness; E11.9 Type 2 diabetes mellitus without complications; G20 Parkinson's disease; M62.81 Muscle weakness (generalized); Z88.2 Allergy status to sulfonamides; Z88.8 Allergy status to other drugs, medicaments and biological substances; Z88.6 Allergy status to analgesic agent; Z88.0 Allergy status to penicillin; Z91.013 Allergy to seafood; G89.29 Other chronic pain; M54.9 Dorsalgia, unspecified; I10 Essential (primary) hypertension; S12.000S Unspecified displaced fracture of first cervical vertebra, sequela; Z91.81 History of falling; V00-Y99 External causes of morbidity; Z79.4 Long term (current) use of insulin; R29.6 Repeated falls
CPT/HCPCS: 36415; 70450; 71045; 80053; 80061; 81003; 82550; 82553; 82962; 83735; 84100; 84484; 85025; 87070; 87081; 87086; 87181; 87205; 93005; 93970; 99285; J1815

== ENCOUNTER 2018-06-22 16:37 | Inpatient (IN) | payer MEDICARE, OTHER ==
[~2018-06-22] VITALS: Ht 162.6 cm; Wt 68.0 kg
[2018-06-22 16:45] VITALS: BP 127/70
[2018-06-22] MEDS ORDERED: ASPIR 8181 MG ORAL (16:48)
[2018-06-22] MEDS ORDERED: CLONIDINE0.1 MG ORAL (16:49)
--- NOTE | 2018-06-22 17:45 | Emergency Room Report ---
History of Present Illness General Chief Complaint: Altered Mental Status Source: Patient, EMS Present Illness HPI 68-year-old female with history of hypertension and diabetes, neuropathy, wheelchair bound, brought in for change in mental status, the patient is alert and oriented to person, place, situation, time and reports that she's been feeling dizzy and fatigued. Denies vertigo, fevers, chills, vomiting, diarrhea , any pain complaints, and reports she's not been feeling confused. She also denies any recent falls. Allergies: Coded Allergies: ACETAMINOPHEN (Verified Allergy, Severe, 12/18/12) ASPIRIN (Verified Allergy, Unknown, 11/10/10) CODEINE (Verified Allergy, Unknown, RASH, 10/25/11) MEPERIDINE (Verified Allergy, Unknown, 11/10/10) PENICILLINS (Verified Allergy, Unknown, RASH, 10/25/11) SHELLFISH (Verified Allergy, Unknown, 11/10/10) SULFA (SULFONAMIDE ANTIBIOTICS) (Verified Allergy, Unknown, 11/10/10) Patient History Past Medical History: see triage record Reviewed Nursing Documentation: PMH: Agreed; PSxH: Agreed Nursing Documentation-PMH Past Medical History: No History, Except For Hx Cardiac Problems: No Hx Hypertension: Yes Hx Pacemaker: No Hx Asthma: No Hx COPD: No Hx Diabetes: Yes Hx Cancer: No Hx Gastrointestinal Problems: Yes - pancreatitis Hx Dialysis: No Hx Neurological Problems: Yes - Parkinson, dementia Hx Cerebrovascular Accident: Yes - right sided weakness Hx Parkinson's Disease: Yes Hx Seizures: Yes Hx Dizziness: Yes Hx Headaches: Yes Review of Systems All Other Systems: negative except mentioned in HPI Physical Exam Vital Signs Date Time Temp Pulse Resp B/P (MAP) Pulse Ox O2 Delivery O2 Flow Rate FiO2 06/22/18 16:42 98.1 78 14 116/65 98 Room Air Sp02 EP Interpretation: reviewed, normal General Appearance: no apparent distress, alert, non-toxic Head: normocephalic Eyes: bilateral eye normal inspection, bilateral eye PERRL, bilateral eye EOMI ENT: normal ENT inspection, hearing grossly normal, normal pharynx, no angioedema, normal voice, moist mucus membranes Neck: normal inspection, full range of motion, supple, supple/symm/no masses Respiratory: chest non-tender, lungs clear, normal breath sounds, chest symmetrical, palpation of chest normal Cardiovascular #1: normal peripheral pulses, regular rate, rhythm, edema - 2+ B /L LE edema Cardiovascular #2: 2+ radial (R), 2+ radial (L) Gastrointestinal: normal inspection, non tender, soft, no mass, no guarding, no rebound Rectal: deferred Genitourinary: normal inspection, no CVA tenderness Musculoskeletal: back normal, gait/station normal, normal range of motion, non- tender, no calf tenderness, Kassidy's Sign negative Neurologic: alert, responsive, car blocker III-XII nml as tested, motor strength/tone normal - weakness symmetrically in all 4 extremities, sensory intact, speech normal Psychiatric: judgement/insight normal, memory normal, mood/affect normal Skin: normal color, no rash, warm/dry, normal turgor Lymphatic: no adenopathy Medical Decision Making ER Course Patient found to be dehydrated with elevated BUN/creatinine, slightly low potassium 5.3, no EKG changes, also found to have evidence for UTI, otherwise unremarkable workup, given IV fluids, IV Rocephin, admitted to for MAR , UTI, given hyperkalemia treatment with calcium gluconate, insulin, d50, sodium bicarbonate and kayexalate. Rhythm Strip Diag. Results Rhythm Strip Time: 19:26 EP Interpretation: yes Rate: 73 Rhythm: NSR, no PVC's, no ectopy Chest X-Ray Diagnostic Results Chest X-Ray Diagnostic Results : Chest X-Ray Ordered: Yes # of Views/Limited/Complete: 1 View Indication: Other - AMS EP Interpretation: Yes Interpretation: no consolidation, no effusion, no pneumothorax, no acute cardiopulmonary disease Impression: No acute disease Electronically Signed by: Michele Lazo MD CT/MRI/US Diagnostic Results CT/MRI/US Diagnostic Results : Imaging Test Ordered: ct head Impression no acute dz Last Vital Signs Date Time Temp Pulse Resp B/P (MAP) Pulse Ox O2 Delivery O2 Flow Rate FiO2 06/22/18 16:42 98.1 78 14 116/65 98 Room Air Disposition: ADMITTED INPATIENT Condition: Stable MICHELE LAZO M.D Jun 22, 2018 17:45
[2018-06-22 18:52] LABS: BASOPHILS % (AUTO) 1.2 % (0.0-2.0); EOSINOPHILS % (AUTO) 3.3 % (0.0-3.0); HEMATOCRIT 36.6 % (37.0-47.0); HEMOGLOBIN 11.6 G/DL (12.0-16.0); LYMPHOCYTES % (AUTO) 32.8 % (20.0-45.0); MEAN CORPUSCULAR VOLUME 94 FL (80-99); MONOCYTES % (AUTO) 11.3 % (1.0-10.0); NEUTROPHILS % (AUTO) 51.3 % (45.0-75.0); PLATELET COUNT 259 K/UL (150-450); RED BLOOD COUNT 3.88 M/UL (4.20-5.40); RED CELL DISTRIBUTION WIDTH 13.7 % (11.6-14.8); WHITE BLOOD COUNT 6.5 K/UL (4.8-10.8)
[2018-06-22 18:53] LABS: AMMONIA < 10 umol/L (11-32)
[2018-06-22 18:54] LABS: ANION GAP 14 mmol/L (5-15); BLOOD UREA NITROGEN 54 mg/dL (7-18); CALCIUM 9.6 MG/DL (8.5-10.1); CARBON DIOXIDE 21 MMOL/L (21-32); CHLORIDE 108 MMOL/L (98-107); CREATININE 1.5 MG/DL (0.55-1.30); POTASSIUM 5.3 MMOL/L (3.5-5.1); SODIUM 143 MMOL/L (136-145)
[2018-06-22 19:01] LABS: APPEARANCE,URINE SLIGHTLY CLOUDY; BILIRUBIN, URINE NEGATIVE (NEGATIVE); COLOR,URINE PALE YELLOW; GLUCOSE, URINE (UA) NEGATIVE (NEGATIVE); KETONES,URINE NEGATIVE (NEGATIVE); LEUKOCYTE ESTERASE ,URINE 3+ (NEGATIVE); NITRITE,URINE NEGATIVE (NEGATIVE); PH,URINE 5 (4.5-8.0); PROTEIN,URINE NEGATIVE (NEGATIVE); UROBILINOGEN,URINE NORMAL MG/DL (0.0-1.0)
[2018-06-22 19:08] LABS: ALANINE AMINOTRANSFERASE 7 U/L (12-78); ALBUMIN 3.6 G/DL (3.4-5.0); ALBUMIN/GLOBULIN RATIO 0.7 (1.0-2.7); ALKALINE PHOSPHATASE 84 U/L (46-116); ASPARTATE AMINO TRANSFERASE 19 U/L (15-37); BILIRUBIN,TOTAL 0.5 MG/DL (0.2-1.0)
[2018-06-22] MEDS ORDERED: Calcium Gluconate 1gm/10ml vial IVP ONE (19:30)
[2018-06-22] MEDS ORDERED: cefTRIAXone 1 GM in NS 55 ML IVPB ONE (19:30)
[2018-06-22] MEDS ORDERED: Sodium Polystyrene Sulfonate 15gm Powder ORAL ONE (19:30)
[2018-06-22] MEDS ORDERED: Insulin Human Regular 100units/ml 3ml IV ONE (19:30)
[2018-06-22 20:00] VITALS: BP 133/68
[2018-06-22 22:00] VITALS: BP 119/60
--- NOTE | 2018-06-22 23:14 | History and Physical ---
History of Present Illness General Date patient seen: Jun 22, 2018 Time patient seen: 22:55 Reason for Hospitalization: Altered Mental Status Present Illness HPI 68 yo female with h/o htn, dm, neuropathy, wheelchair bound was brought in for concerns of dizziness and fatigue. Patient is from SNF and is a [facility] patient. Patient denies any fevers/chills, n/v, diarrhea or abdominal pain. Denies being confused and is AOx3. Patient was noted to have elevated Potassium level of 5.3 and Cr 1.5. Patient states she feels very weak. soc hx: reviewed, denies any smoking, alcohol or drug use Allergies: Coded Allergies: ACETAMINOPHEN (Verified Allergy, Severe, 12/18/12) ASPIRIN (Verified Allergy, Unknown, 11/10/10) CODEINE (Verified Allergy, Unknown, RASH, 10/25/11) MEPERIDINE (Verified Allergy, Unknown, 11/10/10) PENICILLINS (Verified Allergy, Unknown, RASH, 10/25/11) SHELLFISH (Verified Allergy, Unknown, 11/10/10) SULFA (SULFONAMIDE ANTIBIOTICS) (Verified Allergy, Unknown, 11/10/10) Medication History Scheduled Aspirin* (Aspir 81*), 81 MG ORAL DAILY, (Reported) Lipase/Amylase/Protease (Pancrelipase Dr 5,000 Unit Cap), 2 EA ORAL THREE TIMES A DAY Scheduled PRN Cyclobenzaprine Hcl* (Flexeril*), 10 MG ORAL TID PRN for Muscle Spasm Miscellaneous Medications Amlodipine Besylate* (Amlodipine Besylate*), (Reported) Atenolol* (Tenormin*), (Reported) Carbidopa/Levodopa (Carbidopa-Levodopa 25-100 Tab), (Reported) Clonidine HCl (Clonidine HCl), 0.1 MG ORAL, (Reported) Hydrocodone Bit/Acetaminophen 10-325* (Hydrocodon-Acetaminophn 10-325*), ( Reported) Metformin Hcl* (Metformin Hcl*), (Reported) Pantoprazole* (Pantoprazole*), (Reported) Paroxetine Hcl (Paroxetine Hcl), (Reported) Sitagliptin (Januvia), (Reported) Patient History History Provided By: Patient, Medical Record Healthcare decision maker Resuscitation status Advanced Directive on File Family History Family History: FHx: esophageal cancer Review of Systems Constitutional: Reports: no symptoms, see HPI, weakness, other; Denies: chills , sweats, fever, malaise Eye: Reports: no symptoms, see HPI, other; Denies: eye pain, blurred vision, tearing, double vision, nose pain, nose congestion, acuity changes, discharge ENT: Reports: no symptoms, see HPI; Denies: ear pain, ear discharge, nose pain , nose congestion, throat pain, throat swelling, mouth pain, hearing loss, nasal discharge, other Respiratory: Reports: no symptoms, see HPI, other; Denies: cough, orthopnea, shortness of breath, stridor, wheezing, IBARRA, sputum Cardiovascular: Reports: no symptoms, see HPI, other; Denies: chest pain, edema , palpitations, syncope, PND Gastrointestinal: Reports: no symptoms, see HPI, other; Denies: abdominal pain , constipation, diarrhea, nausea, vomiting, melena, hematemesis Genitourinary: Reports: no symptoms, see HPI, other; Denies: discharge, dysuria , frequency, hematuria, pain, retention, incontinence, urgency, vag bleed/dc Musculoskeletal: Reports: no symptoms, see HPI, other; Denies: back pain, gout , joint pain, joint swelling, muscle pain, muscle stiffness Skin: Reports: no symptoms, see HPI, other; Denies: rash, change in color, change in hair/nails, dryness, lesions Psychiatric: Reports: no symptoms, see HPI, other; Denies: prior hx, anxiety, depressed feelings, emotional problems, SI, HI, hallucinations Neurological: Reports: no symptoms, see HPI, other; Denies: headache, numbness , paresthesia, seizure, tingling, tremors, focal weakness, syncope, dizziness Endocrine: Reports: no symptoms, see HPI, other; Denies: excessive sweating, flushing, intolerance to temperature, increased thirst, increased urine, unexplained weight loss Hematologic/Lymphatic: Reports: no symptoms, see HPI, other; Denies: anemia, blood clots, easy bleeding, easy bruising, swollen glands, diathesis Physical Exam General Appearance: no apparent distress, alert Lines, tubes and drains: peripheral HEENT: normocephalic, atraumatic Neck: non-tender, normal alignment, supple Respiratory/Chest: chest wall non-tender, lungs clear, normal breath sounds, no respiratory distress, no accessory muscle use Cardiovascular/Chest: normal peripheral pulses, normal rate, regular rhythm Abdomen: normal bowel sounds, non tender, soft, no organomegaly, no mass Extremities: normal range of motion, non-tender, normal inspection, no calf tenderness, normal capillary refill 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, alert, oriented x 3, normal mood/affect Last 24 Hour Vital Signs Date Time Temp Pulse Resp B/P (MAP) Pulse Ox O2 Delivery O2 Flow Rate FiO2 06/22/18 20:00 98.1 76 10 133/68 99 Room Air 06/22/18 16:45 78 14 Room Air 06/22/18 16:45 98.1 76 10 127/70 99 Room Air 06/22/18 16:42 98.1 78 14 116/65 98 Room Air Laboratory Tests Test 06/22/18 18:21 06/22/18 18:36 White Blood Count 6.5 K/UL (4.8-10.8) Red Blood Count 3.88 M/UL (4.20-5.40) L Hemoglobin 11.6 G/DL (12.0-16.0) L Hematocrit 36.6 % (37.0-47.0) L Mean Corpuscular Volume 94 FL (80-99) Mean Corpuscular Hemoglobin 30.0 PG (27.0-31.0) Mean Corpuscular Hemoglobin Concent 31.8 G/DL (32.0-36.0) L Red Cell Distribution Width 13.7 % (11.6-14.8) Platelet Count 259 K/UL (150-450) Mean Platelet Volume 5.6 FL (6.5-10.1) L Neutrophils (%) (Auto) 51.3 % (45.0-75.0) Lymphocytes (%) (Auto) 32.8 % (20.0-45.0) Monocytes (%) (Auto) 11.3 % (1.0-10.0) H Eosinophils (%) (Auto) 3.3 % (0.0-3.0) H Basophils (%) (Auto) 1.2 % (0.0-2.0) Sodium Level 143 MMOL/L (136-145) Potassium Level 5.3 MMOL/L (3.5-5.1) H Chloride Level 108 MMOL/L (98-107) H Carbon Dioxide Level 21 MMOL/L (21-32) Anion Gap 14 mmol/L (5-15) Blood Urea Nitrogen 54 mg/dL (7-18) H Creatinine 1.5 MG/DL (0.55-1.30) H Estimat Glomerular Filtration Rate 41.7 mL/min (>60) Glucose Level 60 MG/DL (74-106) L Calcium Level 9.6 MG/DL (8.5-10.1) Total Bilirubin 0.5 MG/DL (0.2-1.0) Aspartate Amino Transf (AST/SGOT) 19 U/L (15-37) Alanine Aminotransferase (ALT/SGPT) 7 U/L (12-78) L Alkaline Phosphatase 84 U/L (46-116) Ammonia < 10 umol/L (11-32) L Troponin I 0.000 ng/mL (0.000-0.056) Total Protein 8.7 G/DL (6.4-8.2) H Albumin 3.6 G/DL (3.4-5.0) Globulin 5.1 g/dL Albumin/Globulin Ratio 0.7 (1.0-2.7) L Thyroid Stimulating Hormone (TSH) 0.669 uiU/mL (0.358-3.740) Salicylates Level 1.2 ug/mL (2.8-20) L Acetaminophen Level < 2 MCG/ML (10-30) L Serum Alcohol < 3 mg/dL Urine Color Pale yellow Urine Appearance Slightly cloudy Urine pH 5 (4.5-8.0) Urine Specific [place] 1.015 (1.005-1.035) Urine Protein Negative (NEGATIVE) Urine Glucose (UA) Negative (NEGATIVE) Urine Ketones Negative (NEGATIVE) Urine Blood 4+ (NEGATIVE) H Urine Nitrite Negative (NEGATIVE) Urine Bilirubin Negative (NEGATIVE) Urine Urobilinogen Normal MG/DL (0.0-1.0) Urine Leukocyte Esterase 3+ (NEGATIVE) H Urine RBC 0-2 /HPF (0 - 2) Urine WBC 10-15 /HPF (0 - 2) H Urine Squamous Epithelial Cells None /LPF (NONE/OCC) Urine Amorphous Sediment Few /LPF (NONE) H Urine Bacteria Few /HPF (NONE) Urine Opiates Screen Positive (NEGATIVE) H Urine Barbiturates Screen Negative (NEGATIVE) Phencyclidine (PCP) Screen Negative (NEGATIVE) Urine Amphetamines Screen Negative (NEGATIVE) Urine Benzodiazepines Screen Negative (NEGATIVE) Urine Cocaine Screen Negative (NEGATIVE) Urine Marijuana (THC) Screen Negative (NEGATIVE) Height (Feet): 5 Height (Inches): 4.00 Weight (Pounds): 150 Assessment/Plan Problem List: (1) UTI (urinary tract infection) Assessment & Plan: +LE rbc's noted levofloxacin started likely cause of weakness pending cx monitor for improvement ICD Codes: N39.0 - Urinary tract infection, site not specified SNOMED: 06093318 Qualifiers: Qualified Codes: N30.01 - Acute cystitis with hematuria (2) Hyperkalemia Assessment & Plan: K 5.3 fluids monitor recheck labs in the AM ICD Codes: E87.5 - Hyperkalemia SNOMED: 73817508 (3) MAR (acute kidney injury) Assessment & Plan: Cr 1.5 fluids recheck renal function in the AM should improve unknown baseline renal function avoid nephrotoxic meds ICD Codes: N17.9 - Acute kidney failure, unspecified SNOMED: 04227713 (4) Wheelchair bound Assessment & Plan: stable ICD Codes: Z99.3 - Dependence on wheelchair SNOMED: 002059912, 936563000 (5) Weakness Assessment & Plan: likely due to uti, mar, hyperkalemia fluids abx monitor ICD Codes: R53.1 - Weakness SNOMED: 75716021 (6) DM (diabetes mellitus) Assessment & Plan: iss accuchecks ICD Codes: E11.9 - DM (diabetes mellitus) SNOMED: 91728923 Qualifiers: Qualified Codes: E11.22 - Type 2 diabetes mellitus with diabetic chronic kidney disease; Z79.4 - [facility] (current) use of insulin (7) Normocytic anemia, not due to blood loss Assessment & Plan: stable no acute blood loss monitor ICD Codes: D64.9 - Anemia, unspecified SNOMED: 085284047 Status: stable Assessment/Plan ppx: heparin diet: ccd5 I have spent over 69 minutes regarding chart review, patient care and counseling and over 44 minutes of face to face time admit to observation. expect 1 night stay. Ana Frances MD Jun 22, 2018 23:14
[2018-06-23] MEDS: Morphine Sulfate 4mg/ml Inj (IV/IM USE ONLY) IVP PRN ×6 (00:08→22:24)
[2018-06-23 00:15] VITALS: BP 122/60
[2018-06-23 01:00] VITALS: BP 130/62
[2018-06-23] MEDS: Sodium Chloride 500ML 550 ML IV SCH ×4 (02:13→11:51)
[2018-06-23 04:00] VITALS: BP 157/76
[2018-06-23] MEDS: NovoLOG Insulin Flexpen SUBQ SCH ×4 (06:30→21:00)
[2018-06-23 07:12] LABS: BASOPHILS % (AUTO) 1.4 % (0.0-2.0); EOSINOPHILS % (AUTO) 2.9 % (0.0-3.0); HEMATOCRIT 34.6 % (37.0-47.0); HEMOGLOBIN 11.1 G/DL (12.0-16.0); LYMPHOCYTES % (AUTO) 28.3 % (20.0-45.0); MEAN CORPUSCULAR VOLUME 92 FL (80-99); NEUTROPHILS % (AUTO) 57.3 % (45.0-75.0); PLATELET COUNT 263 K/UL (150-450); RED BLOOD COUNT 3.75 M/UL (4.20-5.40); RED CELL DISTRIBUTION WIDTH 13.5 % (11.6-14.8); WHITE BLOOD COUNT 5.5 K/UL (4.8-10.8)
[2018-06-23 07:26] LABS: ANION GAP 9 mmol/L (5-15); BLOOD UREA NITROGEN 46 mg/dL (7-18); CALCIUM 9.4 MG/DL (8.5-10.1); CARBON DIOXIDE 24 MMOL/L (21-32); CHLORIDE 111 MMOL/L (98-107); CREATININE 1.3 MG/DL (0.55-1.30); POTASSIUM 4.4 MMOL/L (3.5-5.1); SODIUM 144 MMOL/L (136-145)
[2018-06-23 08:00] VITALS: BP 124/73
[2018-06-23] MEDS: Heparin 5000 units/ml inj SUBQ SCH ×2 (09:09→21:21)
--- NOTE | 2018-06-23 09:27 | Diagnostic Imaging Report ---
Indication: Altered mental status, fatigue and dizziness Technique: Continuous helical CT scanning of the head was performed without intravenous contrast material. Axial and coronal 5 mm sections were generated. Radiation dose was minimized using automated exposure control Dose: Total Dose Length Product - DLP 1362.[address] Dose Index - CTDIvol(s) 70.38 mGy. Comparison: 04/03/2018 Findings: The ventricular system is slightly prominent but age-appropriate. Minimal periventricular deep white matter low-attenuation again demonstrated. Evidence of prior bilateral cataract surgery again demonstrated. There is no shift of midline structures. No abnormal extra-axial fluid collections are noted. There is no evidence of intracerebral bleeding. No other abnormal high or low density areas are noted within the brain. No significant interim change Impression: Minimal age-related changes Negative for acute intracranial bleed or mass effect This agrees with the preliminary interpretation provided overnight by [facility] teleradiology service. The CT scanner at [facility] is accredited by the [employer] and the scans are performed using protocols designed to limit radiation exposure to as low as reasonably achievable to attain images of sufficient resolution adequate for diagnostic evaluation.
--- NOTE | 2018-06-23 09:54 | Diagnostic Imaging Report ---
Indication: Shortness of breath Technique: One view of the chest Comparison: 04/03/2018 Findings: Linear atelectatic bands are seen in the right infrahilar region. The lungs and pleural spaces are otherwise clear. The heart size is normal. Impression: Right infrahilar atelectatic changes. No acute process otherwise
[2018-06-23 12:00] VITALS: BP 152/77
--- NOTE | 2018-06-23 12:10 | History and Physical ---
History of Present Illness General Date patient seen: Jun 23, 2018 Time patient seen: 12:04 Reason for Hospitalization: Altered Mental Status Present Illness HPI 68 yo female with h/o htn, dm, neuropathy, wheelchair bound was brought in for concerns of dizziness and fatigue. Patient is from SNF and is a [facility] patient. Patient denies any fevers/chills, n/v, diarrhea or abdominal pain. Denies being confused and is AOx3. Patient was noted to have elevated Potassium level of 5.3 and Cr 1.5. Patient states she feels very weak. patient initially placed under obs as patient was believed to have improved enough to be dc'd today however patient is still very weak.. mental status has improved a bit however.. says she feels very weak and too weak to walk K improved to 4.4 and Cr improved to 1.3 planned to continue fluids and have PT eval ROS: 14 point ROS completed and negative except for the above Allergies: Coded Allergies: ACETAMINOPHEN (Verified Allergy, Severe, 12/18/12) ASPIRIN (Verified Allergy, Unknown, 11/10/10) CODEINE (Verified Allergy, Unknown, RASH, 10/25/11) MEPERIDINE (Verified Allergy, Unknown, 11/10/10) PENICILLINS (Verified Allergy, Unknown, RASH, 10/25/11) SHELLFISH (Verified Allergy, Unknown, 11/10/10) SULFA (SULFONAMIDE ANTIBIOTICS) (Verified Allergy, Unknown, 11/10/10) Medication History Scheduled Aspirin* (Aspir 81*), 81 MG ORAL DAILY, (Reported) Lipase/Amylase/Protease (Pancrelipase Dr 5,000 Unit Cap), 2 EA ORAL THREE TIMES A DAY Scheduled PRN Cyclobenzaprine Hcl* (Flexeril*), 10 MG ORAL TID PRN for Muscle Spasm Miscellaneous Medications Amlodipine Besylate* (Amlodipine Besylate*), (Reported) Atenolol* (Tenormin*), (Reported) Carbidopa/Levodopa (Carbidopa-Levodopa 25-100 Tab), (Reported) Clonidine HCl (Clonidine HCl), 0.1 MG ORAL, (Reported) Hydrocodone Bit/Acetaminophen 10-325* (Hydrocodon-Acetaminophn 10-325*), ( Reported) Metformin Hcl* (Metformin Hcl*), (Reported) Pantoprazole* (Pantoprazole*), (Reported) Paroxetine Hcl (Paroxetine Hcl), (Reported) Sitagliptin (Januvia), (Reported) Patient History History Provided By: Patient Healthcare decision maker Resuscitation status Full Code Advanced Directive on File Family History Family History: FHx: esophageal cancer Physical Exam General Appearance: no apparent distress, alert Lines, tubes and drains: peripheral HEENT: normocephalic, atraumatic, mucous membranes moist, PERRL Neck: non-tender, normal alignment, supple, normal inspection, abnormal alignment Respiratory/Chest: chest wall non-tender, lungs clear, normal breath sounds Cardiovascular/Chest: normal peripheral pulses, normal rate, regular rhythm Abdomen: normal bowel sounds, non tender, soft Extremities: normal range of motion, non-tender, normal inspection Skin Exam: normal pigmentation, warm/dry 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, no motor/sensory deficits, alert, oriented x 3, responsive, normal mood/affect Last 24 Hour Vital Signs Date Time Temp Pulse Resp B/P (MAP) Pulse Ox O2 Delivery O2 Flow Rate FiO2 06/23/18 09:05 84 124/73 06/23/18 08:00 98.1 84 18 124/73 (90) 97 06/23/18 04:00 97.1 82 18 157/76 (103) 99 06/23/18 03:57 84 06/23/18 03:34 Room Air 06/23/18 01:10 85 06/23/18 01:00 97.5 78 18 130/62 (84) 99 06/23/18 00:50 98.1 76 10 122/60 99 Room Air 06/23/18 00:39 98.1 06/23/18 00:15 98.1 76 10 122/60 99 Room Air 06/22/18 22:00 98.1 82 10 119/60 99 Room Air 06/22/18 20:00 98.1 76 10 133/68 99 Room Air 06/22/18 16:45 78 14 Room Air 06/22/18 16:45 98.1 76 10 127/70 99 Room Air 06/22/18 16:42 98.1 78 14 116/65 98 Room Air Intake and Output 06/22/18 06/23/18 19:00 07:00 Intake Total 738 ml Balance 738 ml IV Total 738 ml # Voids 1 Laboratory Tests Test 06/22/18 18:21 06/22/18 18:36 06/23/18 06:09 White Blood Count 6.5 K/UL (4.8-10.8) 5.5 K/UL (4.8-10.8) Red Blood Count 3.88 M/UL (4.20-5.40) L 3.75 M/UL (4.20-5.40) L Hemoglobin 11.6 G/DL (12.0-16.0) L 11.1 G/DL (12.0-16.0) L Hematocrit 36.6 % (37.0-47.0) L 34.6 % (37.0-47.0) L Mean Corpuscular Volume 94 FL (80-99) 92 FL (80-99) Mean Corpuscular Hemoglobin 30.0 PG (27.0-31.0) 29.7 PG (27.0-31.0) Mean Corpuscular Hemoglobin Concent 31.8 G/DL (32.0-36.0) L 32.2 G/DL (32.0-36.0) Red Cell Distribution Width 13.7 % (11.6-14.8) 13.5 % (11.6-14.8) Platelet Count 259 K/UL (150-450) 263 K/UL (150-450) Mean Platelet Volume 5.6 FL (6.5-10.1) L 4.9 FL (6.5-10.1) L Neutrophils (%) (Auto) 51.3 % (45.0-75.0) 57.3 % (45.0-75.0) Lymphocytes (%) (Auto) 32.8 % (20.0-45.0) 28.3 % (20.0-45.0) Monocytes (%) (Auto) 11.3 % (1.0-10.0) H 10.0 % (1.0-10.0) Eosinophils (%) (Auto) 3.3 % (0.0-3.0) H 2.9 % (0.0-3.0) Basophils (%) (Auto) 1.2 % (0.0-2.0) 1.4 % (0.0-2.0) Sodium Level 143 MMOL/L (136-145) 144 MMOL/L (136-145) Potassium Level 5.3 MMOL/L (3.5-5.1) H 4.4 MMOL/L (3.5-5.1) Chloride Level 108 MMOL/L (98-107) H 111 MMOL/L (98-107) H Carbon Dioxide Level 21 MMOL/L (21-32) 24 MMOL/L (21-32) Anion Gap 14 mmol/L (5-15) 9 mmol/L (5-15) Blood Urea Nitrogen 54 mg/dL (7-18) H 46 mg/dL (7-18) H Creatinine 1.5 MG/DL (0.55-1.30) H 1.3 MG/DL (0.55-1.30) Estimat Glomerular Filtration Rate 41.7 mL/min (>60) 49.1 mL/min (>60) Glucose Level 60 MG/DL (74-106) L 61 MG/DL (74-106) L Calcium Level 9.6 MG/DL (8.5-10.1) 9.4 MG/DL (8.5-10.1) Total Bilirubin 0.5 MG/DL (0.2-1.0) Aspartate Amino Transf (AST/SGOT) 19 U/L (15-37) Alanine Aminotransferase (ALT/SGPT) 7 U/L (12-78) L Alkaline Phosphatase 84 U/L (46-116) Ammonia < 10 umol/L (11-32) L Troponin I 0.000 ng/mL (0.000-0.056) Total Protein 8.7 G/DL (6.4-8.2) H Albumin 3.6 G/DL (3.4-5.0) Globulin 5.1 g/dL Albumin/Globulin Ratio 0.7 (1.0-2.7) L Thyroid Stimulating Hormone (TSH) 0.669 uiU/mL (0.358-3.740) Salicylates Level 1.2 ug/mL (2.8-20) L Acetaminophen Level < 2 MCG/ML (10-30) L Serum Alcohol < 3 mg/dL Urine Color Pale yellow Urine Appearance Slightly cloudy Urine pH 5 (4.5-8.0) Urine Specific [place] 1.015 (1.005-1.035) Urine Protein Negative (NEGATIVE) Urine Glucose (UA) Negative (NEGATIVE) Urine Ketones Negative (NEGATIVE) Urine Blood 4+ (NEGATIVE) H Urine Nitrite Negative (NEGATIVE) Urine Bilirubin Negative (NEGATIVE) Urine Urobilinogen Normal MG/DL (0.0-1.0) Urine Leukocyte Esterase 3+ (NEGATIVE) H Urine RBC 0-2 /HPF (0 - 2) Urine WBC 10-15 /HPF (0 - 2) H Urine Squamous Epithelial Cells None /LPF (NONE/OCC) Urine Amorphous Sediment Few /LPF (NONE) H Urine Bacteria Few /HPF (NONE) Urine Opiates Screen Positive (NEGATIVE) H Urine Barbiturates Screen Negative (NEGATIVE) Phencyclidine (PCP) Screen Negative (NEGATIVE) Urine Amphetamines Screen Negative (NEGATIVE) Urine Benzodiazepines Screen Negative (NEGATIVE) Urine Cocaine Screen Negative (NEGATIVE) Urine Marijuana (THC) Screen Negative (NEGATIVE) Microbiology Date/Time Source Procedure Growth Status 06/22/18 18:36 Urine,Clean Catch Urine Culture - Preliminary Resulted Height (Feet): 5 Height (Inches): 4.00 Weight (Pounds): 150 Medications Current Medications Medications (Trade) Dose Ordered Sig/Shantell Route PRN Reason Start Time Stop Time Status Last Admin Dose Admin Amlodipine Besylate (Norvasc) 5 mg DAILY ORAL 06/23/18 09:00 07/23/18 08:59 06/23/18 09:05 Dextrose (Dextrose 50%) 25 ml Q30M PRN IV Hypoglycemia 06/22/18 23:00 07/22/18 22:59 Dextrose (Dextrose 50%) 50 ml Q30M PRN IV Hypoglycemia 06/22/18 23:00 07/22/18 22:59 06/23/18 06:42 Heparin Sodium (Porcine) (Heparin 5000 units/ml) 5,000 units EVERY 12 HOURS SUBQ 06/23/18 09:00 07/23/18 08:59 06/23/18 09:09 Insulin Aspart (NovoLOG) BEFORE MEALS AND HS SUBQ 06/23/18 06:30 07/23/18 06:29 Levofloxacin 150 ml @ 100 mls/hr Q48H IVPB 06/23/18 00:00 06/30/18 00:00 06/23/18 02:14 Morphine Sulfate (Morphine Sulfate) 4 mg Q4H PRN IVP For Pain 06/22/18 23:15 06/29/18 23:14 06/23/18 09:07 Sodium Chloride 550 ml @ 125 mls/hr Q4H24M IV 06/22/18 23:00 07/22/18 22:59 06/23/18 09:08 Assessment/Plan Problem List: (1) UTI (urinary tract infection) Assessment & Plan: +LE rbc's noted levofloxacin started likely cause of weakness pending cx monitor for improvement ICD Codes: N39.0 - Urinary tract infection, site not specified SNOMED: 77253219 Qualifiers: Qualified Codes: N30.01 - Acute cystitis with hematuria (2) Hyperkalemia Assessment & Plan: K 5.3 on admit, currently 4.4 fluids monitor improving ICD Codes: E87.5 - Hyperkalemia SNOMED: 75919891 (3) MAR (acute kidney injury) Assessment & Plan: Cr 1.5 on admit, currently 1.3 fluids unknown baseline renal function avoid nephrotoxic meds ICD Codes: N17.9 - Acute kidney failure, unspecified SNOMED: 16103398 (4) Wheelchair bound Assessment & Plan: stable ICD Codes: Z99.3 - Dependence on wheelchair SNOMED: 617184734, 495335371 (5) Weakness Assessment & Plan: likely due to uti, mar, hyperkalemia fluids abx monitor still too weak to walk, very tired and weak.. PT eval ICD Codes: R53.1 - Weakness SNOMED: 89640355 (6) DM (diabetes mellitus) Assessment & Plan: iss accuchecks ICD Codes: E11.9 - DM (diabetes mellitus) SNOMED: 81874786 Qualifiers: Qualified Codes: E11.22 - Type 2 diabetes mellitus with diabetic chronic kidney disease; Z79.4 - group home (current) use of insulin (7) Normocytic anemia, not due to blood loss Assessment & Plan: stable no acute blood loss monitor ICD Codes: D64.9 - Anemia, unspecified SNOMED: 991983345 (8) Parkinsons Assessment & Plan: resume home meds carbidopa/levodopa stable ICD Codes: G20 - Parkinson's disease SNOMED: 35592606 Status: stable Assessment/Plan ppx: heparin diet: ccd5 I have spent over 58 minutes regarding chart review, patient care and counseling and over 38 minutes of face to face time admit to inpatient . expect 2-3 night stay. Ana Frances MD Jun 23, 2018 12:10
[2018-06-23] MEDS: Levodopa/Carbidopa 25/100 tab ORAL SCH (17:18)
[2018-06-23 20:00] VITALS: BP 127/69
[2018-06-23] MEDS ORDERED: SUMAtriptan 50mg tab ORAL SCH ×2 (20:45)
[2018-06-23] MEDS ORDERED: Sodium Chloride 500ML 550 ML IV SCH (23:00)
[2018-06-24] VITALS: BP 137/76
[2018-06-24] MEDS: Morphine Sulfate 4mg/ml Inj (IV/IM USE ONLY) IVP PRN ×2 (02:37→09:25)
[2018-06-24 04:00] VITALS: BP 124/53
[2018-06-24] MEDS: NovoLOG Insulin Flexpen SUBQ SCH (06:30)
[2018-06-24 08:00] VITALS: BP 148/79
[2018-06-24] MEDS ORDERED: LEVOFLOXACIN500 MG ORAL (08:22)
--- NOTE | 2018-06-24 08:28 | Discharge Summary ---
Discharge Summary Hospital Course Date of Admission Jun 22, 2018 at 20:35 Date of Discharge 06/24/18 Admitting Diagnosis MAR, UTI, hyperk+ HPI Demetra Lara is a 68 year old female who was admitted on Jun 22, 2018 at 20:35 for Urinary Tract Infection/Acute Kidney Injury Hospital Course h/o htn, dm, neuropathy, wheelchair bound, parkinsons dz was brought in for concerns of dizziness and fatigue. Patient denies any fevers/chills, n/v, diarrhea or abdominal pain. Denies being confused and is AOx3. Patient was noted to have elevated Potassium level of 5.3 and Cr 1.5. Patient states she feels very weak. patient started on abx, potassium and cr improved however patient was still very weak and was unable to dc safely back home dizziness improved today 06/24/18 patient ready to go home with her family abx prescribed Physical Exam: General Appearance: no apparent distress, alert Lines, tubes and drains: peripheral HEENT: normocephalic, atraumatic, mucous membranes moist, PERRL Neck: non-tender, normal alignment, supple, normal inspection, abnormal alignment Respiratory/Chest: chest wall non-tender, lungs clear, normal breath sounds Cardiovascular/Chest: normal peripheral pulses, normal rate, regular rhythm Abdomen: normal bowel sounds, non tender, soft Extremities: normal range of motion, non-tender, normal inspection Skin Exam: normal pigmentation, warm/dry 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 81 MG ORAL DAILY, TAB (This prescription has been renewed) Atenolol* (Tenormin*) 100 Mg Tablet #30 Carbidopa/Levodopa (Carbidopa-Levodopa 25-100 Tab) 1 Each Tablet #90 Cyclobenzaprine Hcl* (Flexeril*) 10 Mg Tablet 10 MG ORAL TID PRN for Muscle Spasm, #20 TAB Lipase/Amylase/Protease (Pancrelipase Dr 5,000 Unit Cap) 1 Ea Cap 2 EA ORAL THREE TIMES A DAY, #180 CAP Metformin Hcl* (Metformin Hcl*) 500 Mg Tablet #120 Pantoprazole* (Pantoprazole*) 40 Mg Tablet. #30 Paroxetine Hcl (Paroxetine Hcl) 40 Mg Tablet #30 Sitagliptin (Januvia) 100 Mg Tab #30 Discontinued Medications: Clonidine HCl (Clonidine HCl) 0.1 Mg Tablet 0.1 MG ORAL, TAB Hydrocodone Bit/Acetaminophen 10-325* (Hydrocodon-Acetaminophn 10-325*) 1 Each Tablet #150 Discharge Condition Upon Discharge: stable Discharge Disposition Patient was discharged to Discharge Diagnoses: (1) Wheelchair bound (2) Hyperkalemia (3) Weakness (4) UTI (urinary tract infection) (5) Altered mental status (6) Parkinsons (7) Hyperkalemia (8) Dehydration (9) Acute on chronic renal insufficiency (10) DM (diabetes mellitus) (11) UTI (urinary tract infection) (12) Normocytic anemia, not due to blood loss Ana Frances MD Jun 24, 2018 08:28
[2018-06-24 09:16] VITALS: BP 148/79
[2018-06-24] MEDS: Levodopa/Carbidopa 25/100 tab ORAL SCH (09:16)
[2018-06-24] MEDS: Heparin 5000 units/ml inj SUBQ SCH (09:19)
[2018-06-24] MEDS ORDERED: NS 500ML ONE (11:29)
--- NOTE | 2018-06-24 14:52 | Cardiology Report ---
APPROVED REPORT EKG Measurement Heart [id number] Normal sinus rhythm Incomplete right bundle branch block Minimal voltage criteria for LVH, may be normal variant Borderline ECG
== END 2018-06-24 11:30 | disposition home or self-care (01) | DRG 641 ==
LOC: EDBD 16:37 → EMR 18:35 → EDBEDREQ 19:51 → OBSVTOIN 20:35 → INTOOBSV 20:35 → 2E 20:35 → EDBEDREQ 21:51
DX: E87.5 Hyperkalemia (principal); N39.0 Urinary tract infection, site not specified; N17.9 Acute kidney failure, unspecified; E86.0 Dehydration; Z99.3 Dependence on wheelchair; R53.1 Weakness; G20 Parkinson's disease; N18.9 Chronic kidney disease, unspecified; E11.9 Type 2 diabetes mellitus without complications; D64.9 Anemia, unspecified; Z88.2 Allergy status to sulfonamides; Z88.8 Allergy status to other drugs, medicaments and biological substances; Z88.6 Allergy status to analgesic agent; Z88.0 Allergy status to penicillin; Z91.013 Allergy to seafood; Z79.4 Long term (current) use of insulin
CPT/HCPCS: 36415; 70450; 71045; 80048; 80053; 80307; 80329; 81003; 82140; 82962; 84443; 84484; 85025; 87086; 87181; 93005; 96361; 96365; 96368; 96375; 99284; J1815

== ENCOUNTER 2020-01-01 01:41 | Inpatient (IN) | payer MEDICARE, OTHER ==
[2020-01-01] VITALS (7 sets, daily range): BP systolic 121–153; BP diastolic 59–74
[~2020-01-01] VITALS: Ht 167.6 cm; Wt 57.2 kg
[~2020-01-01 01:41] MED LIST changes: +ASPIR 8181 MG ORAL; +CLONIDINE0.1 MG ORAL; +LEVOFLOXACIN500 MG ORAL
--- NOTE | 2020-01-01 02:00 | Emergency Room Report ---
History of Present Illness General Chief Complaint: Abnormal Labs Source: Patient, EMS Present Illness HPI This is a 69-year-old female who has a history of Parkinson, diabetes, high blood pressure who presents with chief complaint of hypoglycemia. Patient is a poor historian because she said she does not remember them very well. She said that she ate well tonight. She knew she woke up on the floor. Per EMS, her brother called 911 because she was unresponsive. They said that she was diaphoretic and blood sugar was in the 20s. They gave her D10 dextrose and she responded. Now she is back to baseline. She could not tell me what she takes for diabetes. Her last admission from a couple years ago showed that she was on metformin and Januvia. At this moment in time, I have not able to contact her brother for more information. Patient denies any pain. No chest pain, shortness of breath, nausea vomiting or diarrhea. No fever. Allergies: Coded Allergies: ACETAMINOPHEN (Verified Allergy, Severe, 12/18/12) ASPIRIN (Verified Allergy, Unknown, 11/10/10) CODEINE (Verified Allergy, Unknown, RASH, 10/25/11) MEPERIDINE (Verified Allergy, Unknown, 11/10/10) PENICILLINS (Verified Allergy, Unknown, RASH, 10/25/11) SHELLFISH (Verified Allergy, Unknown, 11/10/10) SULFA (SULFONAMIDE ANTIBIOTICS) (Verified Allergy, Unknown, 11/10/10) COVID-19 Screening Contact w/high risk pt: No Recent Travel to affected area: No Experienced COVID-19 symptoms?: No COVID-19 Testing performed TRACK LAYING MACHINE OPERATOR: No Patient History Past Medical History: see triage record, old chart reviewed, DM, HTN Past Surgical History: other Pertinent Family History: none Social History: Denies: smoking Now: No Immunizations: other Reviewed Nursing Documentation: PMH: Agreed; PSxH: Agreed Nursing Documentation-PMH Hx Cardiac Problems: No Hx Hypertension: Yes Hx Pacemaker: No Hx Asthma: No Hx COPD: No Hx Diabetes: Yes Hx Cancer: No Hx Gastrointestinal Problems: Yes - pancreatitis Hx Dialysis: No Hx Neurological Problems: Yes - Parkinson, dementia Hx Cerebrovascular Accident: Yes - right sided weakness Hx Parkinson's Disease: Yes Hx Seizures: Yes Hx Dizziness: Yes Hx Headaches: Yes Review of Systems Eye: Denies: eye pain, blurred vision ENT: Denies: ear pain, nose congestion, throat swelling Respiratory: Denies: cough, shortness of breath Cardiovascular: Denies: chest pain, palpitations Gastrointestinal: Denies: abdominal pain, diarrhea, nausea, vomiting Musculoskeletal: Denies: back pain, joint pain Skin: Denies: rash Neurological: Denies: headache, numbness Endocrine: Denies: increased thirst, increased urine Hematologic/Lymphatic: Denies: easy bruising All Other Systems: negative except mentioned in HPI Physical Exam Vital Signs Date Time Temp Pulse Resp B/P (MAP) Pulse Ox O2 Delivery O2 Flow Rate FiO2 01/01/20 01:43 98.1 99 16 153/74 (100) 98 Room Air Vitals with high blood pressure Sp02 EP Interpretation: reviewed, normal General Appearance: well appearing, no apparent distress, alert Head: normocephalic, atraumatic Eyes: bilateral eye PERRL, bilateral eye EOMI ENT: hearing grossly normal, normal pharynx Neck: full range of motion, supple, no meningismus Respiratory: chest non-tender, lungs clear, normal breath sounds Cardiovascular #1: regular rate, rhythm, no murmur Gastrointestinal: normal bowel sounds, non tender, no mass, no organomegaly, no bruit, non-distended Musculoskeletal: back normal, normal range of motion Neurologic: other - Left sided weakness Psychiatric: mood/affect normal Medical Decision Making Diagnostic Impression: Primary Impression: Hypoglycemia due to type 2 diabetes mellitus Additional Impressions: Anemia Qualified Codes: D64.9 - Anemia, unspecified CKD (chronic kidney disease) Qualified Codes: N18.9 - Chronic kidney disease, unspecified ER Course This patient presents with hypoglycemia. She is more stable but blood glucose remain low after orange juice and cookies. Patient refused to eat any food. I gave her D50 and put her on D5 solution here. Will admit for further work-up and monitoring. No evidence of any infection. I contact Dr. Dudley for admission. Last Vital Signs Date Time Temp Pulse Resp B/P (MAP) Pulse Ox O2 Delivery O2 Flow Rate FiO2 01/01/20 01:43 98.1 99 16 153/74 (100) 98 Room Air Status: improved Disposition: ADMITTED INPATIENT Condition: Serious Referrals: NOT CHOSEN IPA/,REFERRING (PCP) Lukas James MD Jan 01, 2020 02:00
[2020-01-01 02:20] LABS: BASOPHILS % (AUTO) 1.4 % (0.0-2.0); EOSINOPHILS % (AUTO) 0.7 % (0.0-3.0); HEMOGLOBIN 10.3 G/DL (12.0-16.0); LYMPHOCYTES % (AUTO) 23.2 % (20.0-45.0); MEAN CORPUSCULAR VOLUME 89 FL (80-99); NEUTROPHILS % (AUTO) 63.7 % (45.0-75.0); PLATELET COUNT 307 K/UL (150-450); RED BLOOD COUNT 3.48 M/UL (4.20-5.40); RED CELL DISTRIBUTION WIDTH 13.3 % (11.6-14.8)
[2020-01-01 02:29] LABS: ANION GAP 17 mmol/L (5-15); BLOOD UREA NITROGEN 24 mg/dL (7-18); CALCIUM 8.2 MG/DL (8.5-10.1); CARBON DIOXIDE 17 MMOL/L (21-32); CHLORIDE 112 MMOL/L (98-107); CREATININE 1.8 MG/DL (0.55-1.30); POTASSIUM 3.6 MMOL/L (3.5-5.1); SODIUM 146 MMOL/L (136-145)
[2020-01-01 03:12] LABS: APPEARANCE,URINE CLEAR; BILIRUBIN, URINE NEGATIVE (NEGATIVE); COLOR,URINE PALE YELLOW; GLUCOSE, URINE (UA) NEGATIVE (NEGATIVE); KETONES,URINE NEGATIVE (NEGATIVE); LEUKOCYTE ESTERASE ,URINE NEGATIVE (NEGATIVE); NITRITE,URINE NEGATIVE (NEGATIVE); PH,URINE 5 (4.5-8.0); PROTEIN,URINE NEGATIVE (NEGATIVE); UROBILINOGEN,URINE NORMAL MG/DL (0.0-1.0)
[2020-01-01] MEDS ORDERED: D5 1/2NS w/KCl 20mEq 1,000 ML IV SCH ×2 (03:15→03:30)
--- NOTE | 2020-01-01 04:37 | NUR ---
ED Nurse Note: Report given to BRADY Rider on MS unit.
--- NOTE | 2020-01-01 04:40 | NUR ---
ER DISCHARGE NOTE: Patient is cleared to be discharged to MS unit per ERMD, pt is aox4, 99% on room air, with stable vital signs. pt was able to verbalize understanding. pt is able to ambulate with steady gait. pt took all belongings. Report given to BRADY CASTAÑEDA on MS unit. Pt transported to unit with 2 RNs.
--- NOTE | 2020-01-01 04:45 | NUR ---
NURSE NOTES: Admitted from ER for hypoglycemia, alert and oriented x3. Full skin assessment, noted with sacral healing wound. Belongings accounted and signed by pt. Oriented to room and unit. Call light provided. Instructed to call for assistance, verbalized understanding; able to return demo. Fall precautions implemented, bedlocked, applied yellow gown and socks. Will contact Dr. Dudley for [id number] orders.
--- NOTE | 2020-01-01 05:35 | NUR ---
NURSE NOTES: Called Dr. Dudley for orders, informed him that pt. is unable to give information for her meds. Gave orders and carried out.
[2020-01-01] MEDS ORDERED: NORCO 5-325 TA1 EAC1 ORAL (05:54)
[2020-01-01] MEDS ORDERED: [UNRECOGNIZED DRUG - REMARK] (05:54)
[2020-01-01] MEDS ORDERED: HYDROcodone/Acetamin 5/325 tab ORAL PRN ×3 (06:15→17:52)
[2020-01-01] MEDS: NovoLOG Insulin Flexpen SUBQ SCH ×4 (06:30→20:51)
[2020-01-01] MEDS: D5 1/2NS 1,000 ML IV SCH ×2 (06:54→20:50)
--- NOTE | 2020-01-01 07:30 | NUR ---
HAND-OFF: Report given to Renu ABREU. Endorsed as high fall risk, bed locked and bed alarm on. Call light in reach.
--- NOTE | 2020-01-01 07:35 | NUR ---
NURSE NOTES: Received patient in bed,awake, alert and oriented x3-4 but patient does not remember names of medications. Will follow up with her brother. side rails padded for seizure precaution to history of seizure. Bed is in lowest position and locked. Bed alarm is on and reminded patient to call nurses if needed. Call light within reach. Noted with scabs on bilateral lower ex's and multiple bruises due to multiple falls per patient. Will continue to monitor.
--- NOTE | 2020-01-01 08:18 | Consultation ---
History of Present Illness General Chief Complaint: Abnormal Labs Present Illness HPI 69-year-old female with history of Parkinson's and diabetes and chronic pancreatitis. In the past, she was followed by Dr. Titi Coronado, payroll lead, which I reviewed his note and it states that the patient's diabetes is induced by chronic pancreatitis. The patient was brought to the hospital because her brother called 911 after she was found unresponsive. She was diaphoretic. Blood sugar was in the 20s, D10 was given, she responded and went back to the baseline. The patient onlystates that she is on metformin and Januvia, which not often cause hypoglycemia. Allergies: Coded Allergies: ACETAMINOPHEN (Verified Allergy, Severe, 12/18/12) ASPIRIN (Verified Allergy, Unknown, 11/10/10) CODEINE (Verified Allergy, Unknown, RASH, 10/25/11) MEPERIDINE (Verified Allergy, Unknown, 11/10/10) PENICILLINS (Verified Allergy, Unknown, RASH, 10/25/11) SHELLFISH (Verified Allergy, Unknown, 11/10/10) SULFA (SULFONAMIDE ANTIBIOTICS) (Verified Allergy, Unknown, 11/10/10) Uncoded Allergies: tomatoes (Allergy, Unknown, 01/01/20) Medication History Scheduled Atenolol* (Tenormin*), 100 MG ORAL DAILY, (Reported) Jcbrploen-Sfy-1* (Ytnmnjru-Tzz-2*), 1 PATCH TDERMAL ONCE A WEEK, (Reported) Dicyclomine Hcl* (Dicyclomine Hcl*), 20 MG ORAL QID, (Reported) Glipizide* (Glipizide*), 5 MG ORAL BIDAC, (Reported) Levodopa/Carbidopa (Carbidopa-Levo ER 25-100 Tab), 1 TAB ORAL TID, (Reported) Lipase/Protease/Amylase (Creon Dr 24,000 Units Capsule), 1 EACH PO TID, ( Reported) Methocarbamol* (Robaxin-500*), 500 MG ORAL TID, (Reported) Pantoprazole* (Pantoprazole*), 40 MG ORAL DAILY, (Reported) Paroxetine Hcl* (Paroxetine Hcl*), 20 MG ORAL DAILY, (Reported) Scheduled PRN Hydrocodone Bit/Acetaminophen 5-325* (Montgomery 5-325 Tablet*), 2 TAB ORAL Q12HR PRN for FOR PAIN, (Reported) Loperamide HCl (Loperamide), 2 MG ORAL TID PRN for tid prn, (Reported) Miscellaneous Medications [other meds unknown], (Reported) Patient History Healthcare decision maker Resuscitation status Advanced Directive on File Review of Systems Constitutional: Denies: no symptoms, see HPI, chills, sweats, fever, malaise, weakness, other Eye: Denies: no symptoms, see HPI, eye pain, blurred vision, tearing, double vision, nose pain, nose congestion, acuity changes, discharge, other ENT: Denies: no symptoms, see HPI, ear pain, ear discharge, nose pain, nose congestion, throat pain, throat swelling, mouth pain, hearing loss, nasal discharge, other Respiratory: Denies: no symptoms, see HPI, cough, orthopnea, shortness of breath, stridor, wheezing, IBARRA, sputum, other Cardiovascular: Denies: no symptoms, see HPI, chest pain, edema, palpitations, syncope, PND, other Gastrointestinal: Denies: no symptoms, see HPI, abdominal pain, constipation, diarrhea, nausea, vomiting, melena, hematemesis, other Genitourinary: Denies: no symptoms, see HPI, discharge, dysuria, frequency, hematuria, pain, retention, incontinence, urgency, vag bleed/dc, other Skin: Denies: no symptoms, see HPI, rash, change in color, change in hair/nails , dryness, lesions, other Psychiatric: Denies: no symptoms, see HPI, prior hx, anxiety, depressed feelings, emotional problems, SI, HI, hallucinations, other Neurological: Denies: no symptoms, see HPI, headache, numbness, paresthesia, seizure, tingling, tremors, focal weakness, syncope, dizziness, other Endocrine: Denies: no symptoms, see HPI, excessive sweating, flushing, intolerance to temperature, increased thirst, increased urine, unexplained weight loss, other Hematologic/Lymphatic: Denies: no symptoms, see HPI, anemia, blood clots, easy bleeding, easy bruising, swollen glands, diathesis, other Physical Exam General Appearance: WD/WN, no apparent distress Lines, tubes and drains: peripheral HEENT: normocephalic, atraumatic Neck: non-tender, normal alignment Respiratory/Chest: chest wall non-tender, lungs clear Cardiovascular/Chest: normal peripheral pulses, normal rate, regular rhythm Abdomen: non tender, soft, no organomegaly Extremities: normal range of motion, non-tender Neurologic: alert, oriented x 3, responsive Last 24 Hour Vital Signs Date Time Temp Pulse Resp B/P (MAP) Pulse Ox O2 Delivery O2 Flow Rate FiO2 01/01/20 07:22 99.5 01/01/20 05:14 Room Air 01/01/20 04:31 98.1 91 16 136/60 99 Room Air 01/01/20 03:15 98.1 89 16 152/72 98 Room Air 01/01/20 01:53 98.1 96 16 153/74 98 Room Air 01/01/20 01:43 98.1 99 16 153/74 (100) 98 Room Air Intake and Output 12/31/19 01/01/20 19:00 07:00 Intake Total 120 ml Balance 120 ml Intake Oral 120 ml # Voids 1 Laboratory Tests Test 01/01/20 02:00 01/01/20 02:50 White Blood Count 10.0 K/UL (4.8-10.8) Red Blood Count 3.48 M/UL (4.20-5.40) L Hemoglobin 10.3 G/DL (12.0-16.0) L Hematocrit 31.0 % (37.0-47.0) L Mean Corpuscular Volume 89 FL (80-99) Mean Corpuscular Hemoglobin 29.7 PG (27.0-31.0) Mean Corpuscular Hemoglobin Concent 33.4 G/DL (32.0-36.0) Red Cell Distribution Width 13.3 % (11.6-14.8) Platelet Count 307 K/UL (150-450) Mean Platelet Volume 4.5 FL (6.5-10.1) L Neutrophils (%) (Auto) 63.7 % (45.0-75.0) Lymphocytes (%) (Auto) 23.2 % (20.0-45.0) Monocytes (%) (Auto) 11.0 % (1.0-10.0) H Eosinophils (%) (Auto) 0.7 % (0.0-3.0) Basophils (%) (Auto) 1.4 % (0.0-2.0) Sodium Level 146 MMOL/L (136-145) H Potassium Level 3.6 MMOL/L (3.5-5.1) Chloride Level 112 MMOL/L (98-107) H Carbon Dioxide Level 17 MMOL/L (21-32) L Anion Gap 17 mmol/L (5-15) H Blood Urea Nitrogen 24 mg/dL (7-18) H Creatinine 1.8 MG/DL (0.55-1.30) H Estimat Glomerular Filtration Rate 33.7 mL/min (>60) Glucose Level 62 MG/DL (74-106) L Calcium Level 8.2 MG/DL (8.5-10.1) L Urine Color Pale yellow Urine Appearance Clear Urine pH 5 (4.5-8.0) Urine Specific [place] 1.010 (1.005-1.035) Urine Protein Negative (NEGATIVE) Urine Glucose (UA) Negative (NEGATIVE) Urine Ketones Negative (NEGATIVE) Urine Blood Negative (NEGATIVE) Urine Nitrite Negative (NEGATIVE) Urine Bilirubin Negative (NEGATIVE) Urine Urobilinogen Normal MG/DL (0.0-1.0) Urine Leukocyte Esterase Negative (NEGATIVE) Urine RBC 0-2 /HPF (0 - 2) Urine WBC 0 /HPF (0 - 2) Urine Squamous Epithelial Cells Few /LPF (NONE/OCC) Urine Bacteria None /HPF (NONE) Height (Feet): 5 Height (Inches): 6.00 Weight (Pounds): 123 Medications Current Medications Medications (Trade) Dose Ordered Sig/Shantell Route PRN Reason Start Time Stop Time Status Last Admin Dose Admin Acetaminophen (Tylenol) 650 mg Q6H PRN ORAL mild pain and temp.>100.5 01/01/20 06:15 01/31/20 06:14 Acetaminophen/ Hydrocodone Bitart ([place] 5/325) 1 tab Q6H PRN ORAL PAIN 4-10 01/01/20 06:15 01/08/20 06:14 01/01/20 06:52 Dextrose (Dextrose 50%) 25 ml Q30M PRN IV Hypoglycemia 01/01/20 06:15 03/31/20 06:14 Dextrose (Dextrose 50%) 50 ml Q30M PRN IV Hypoglycemia 01/01/20 06:15 03/31/20 06:14 Dextrose/Sodium Chloride 1,000 ml @ 75 mls/hr [id number] IV 01/01/20 06:15 01/31/20 06:14 01/01/20 06:54 Insulin Aspart (NovoLOG) BEFORE MEALS AND HS SUBQ 01/01/20 06:30 03/31/20 06:29 Ondansetron HCl (Zofran) 4 mg Q4H PRN IVP Nausea & Vomiting 01/01/20 06:15 01/31/20 06:14 Assessment/Plan Diagnosis [place] I: #MAR- due to volume depletion #DM- with hypoglycemia #chronic pancreatitis #h/o CVA #HTN #Parkisons diseae - admit inpatient - IV hydration with D5 - monitor BMP - replete lytes prn - endocrine eval - resume home antihypertensives - hold arb for now - avoid nephrotoxins Time spent 70 minutes -> greater than 50% on care coordination and counseling Jay Dduley M.D. Jan 01, 2020 08:18
--- NOTE | 2020-01-01 09:39 | NUR ---
AUTOMOBILE TESTER NOTE SW met w/ pt and evaluated home safety. Pt presents as A&O4x and cooperative. Pt resides w/ her younger brother, Guy Lara at [address] [place] [address] [address], [place] [id number]. Pt's apartment is located on the first floor and there are no steps/stairs. PT does not have a caregiver. Pt appears in need fo assistance in some ADLs and IADLs including bathing. Guy has been cooking for pt. He can provide limited assistance at this time. Pt has one adult daughter, Lavern Dhillon living in [place]. #[phone]. She hardly visits pt d/t location. Pt reports at least 10x falls in past 6 months. Pt reports having two walkers and a wheelchair at home. Pt uses a walker at home but pt continues to fall. Pt is requesting rehab. PT eval and SNF is highly recommended for this pt.
--- NOTE | 2020-01-01 10:00 | NUR ---
NURSE NOTES: RN spoke to patient's brother to follow up with her home meds. Rn received the name of the medications. Patient's brother spelled the names of medications one by one and RN verified. RN showed the list of med to Dr. Dudley who made round.Dr. Dudley wants to continue all the meds except glipizide, clonidine patch and neupro. Updated home meds.
[2020-01-01] MEDS ORDERED: SINEMET CR 25/101 EA ORAL (10:27)
[2020-01-01] MEDS ORDERED: CATAPRES-TTS 11 EACH TDERMAL (10:27)
[2020-01-01] MEDS ORDERED: ROBAXIN-500MG ORAL (10:27)
[2020-01-01] MEDS ORDERED: IMODIUM2 MG ORAL (10:27)
[2020-01-01] MEDS ORDERED: DICYCLOMINE HCL10 MG ORAL (10:27)
[2020-01-01] MEDS ORDERED: CREON DR 24,001 EACH PO (10:27)
[2020-01-01] MEDS ORDERED: ATENOLOL100 MG ORAL (10:27)
[2020-01-01] MEDS ORDERED: PANTOPRAZOLE SO40 MG ORAL (10:27)
[2020-01-01] MEDS ORDERED: GLIPIZIDE5 MG ORAL (10:27)
[2020-01-01] MEDS ORDERED: PAROXETINE HC12.5 MG ORAL (10:27)
--- NOTE | 2020-01-01 11:00 | NUR ---
NURSE NOTES: Patient wants to take her norco Q4hr not Q6hr. Dr. Dudley was informed and he agreed to change norco same dose to Q4hr.
[2020-01-01] MEDS: Dicyclomine 10mg Cap ORAL SCH ×3 (11:52→20:42)
--- NOTE | 2020-01-01 12:45 | Consultation ---
DATE OF CONSULTATION: 01/01/2020 ENDOCRINOLOGY CONSULTATION CONSULTING PHYSICIAN: Nitin Ramirez MD. REFERRING PHYSICIAN: Dr Karsten Gottlieb REASON FOR CONSULTATION: Diabetes management. HISTORY OF PRESENT ILLNESS: It is important to note that history was obtained from the review of the [facility] chart as well as medical record at [facility] since the patient is a poor historian. The patient is a 69-year-old female with history of Parkinson's and diabetes and chronic pancreatitis. In the past, she was followed by Dr. Titi Coronado, handle attacher, which I reviewed his note and it states that the patient's diabetes is induced by chronic pancreatitis. The patient was brought to the hospital because her brother called 911 after she was found unresponsive. She was diaphoretic. Blood sugar was in the 20s, D10 was given, she responded and went back to the baseline. The patient only states that she is on metformin and Januvia, which not often cause hypoglycemia. We tried to contact her brother, but it was not successful. PAST MEDICAL HISTORY: 1. B12 deficiency. 2. Hypertension. 3. Chronic pancreatitis. 4. GERD. 5. Seizure. 6. Psychiatric illness. 7. Chronic kidney disease. 8. Coronary artery disease. 9. Chronic back pain. ALLERGIES: To aspirin, codeine, iodine, penicillin, shellfish, and sulfa. PAST SURGICAL HISTORY: 1. Suprapubic tube placement. 2. Sigmoid resection. 3. Gastrectomy. 4. Cholecystectomy. 5. Lumbar fusion. REVIEW OF SYSTEMS: Difficult to obtain. LABORATORY DATA: WBC 10, hemoglobin 10, hematocrit 31, platelets of 307,000. Sodium 146, potassium 3.6, chloride 112, bicarb 17, anion gap 17, BUN of 24, creatinine of 1.8, glucose of 62, calcium 8.2. Urine, negative for ketones or glucose. PHYSICAL EXAMINATION: GENERAL: Non-cooperative. VITAL SIGNS: Blood pressure is 121/66, heart rate 82, temperature 97.9, respiratory rate of 18. HEENT: Pupils are equal and reactive to light. Sclerae anicteric. NECK: No JVD. HEART: Regular. LUNGS: Clear. ABDOMEN: Positive bowel sounds. Soft. EXTREMITIES: No clubbing, cyanosis, or edema. DIAGNOSES: 1. Hypoglycemia. 2. Diabetes, out of control. 3. Cognitive decline. 4. Parkinson's. PLAN: 1. Admit to the floor. 2. Frequent blood glucose monitoring. 3. Dextrose infusion. 4. Hold oral diabetic medication. We will obtain more information about oral diabetic agents from the brother when available. The patient as an outpatient on Januvia and metformin, which none of those agents should cause hypoglycemia. 5. I will follow the patient during hospital stay. Thank you, Dr. Gottlieb , for the courtesy of this consultation. Nitin Ramirez M.D. DR: CHICHO JOB#: [id number] CC: LÁZARO
--- NOTE | 2020-01-01 13:33 | History & Physical ---
History and Physical History & Physicial HISTORY OF PRESENT ILLNESS: It is important to note that history was obtained from the review of the [facility] chart as well as medical record at [facility] since the patient is a poor historian. The patient is a 69-year-old female with history of Parkinson's and diabetes and chronic pancreatitis. In the past, she was followed by Dr. Titi Coronado, coating mixer tender, which I reviewed his note and it states that the patient's diabetes is induced by chronic pancreatitis. The patient was brought to the hospital because her brother called 911 after she was found unresponsive. She was diaphoretic. Blood sugar was in the 20s, D10 was given, she responded and went back to the baseline. The patient only states that she is on metformin and Januvia, which not often cause hypoglycemia. We tried to contact her brother, but it was not successful. PAST MEDICAL HISTORY: 1. B12 deficiency. 2. Hypertension. 3. Chronic pancreatitis. 4. GERD. 5. Seizure. 6. Psychiatric illness. 7. Chronic kidney disease. 8. Coronary artery disease. 9. Chronic back pain. ALLERGIES: To aspirin, codeine, iodine, penicillin, shellfish, and sulfa. PAST SURGICAL HISTORY: 1. Suprapubic tube placement. 2. Sigmoid resection. 3. Gastrectomy. 4. Cholecystectomy. 5. Lumbar fusion. REVIEW OF SYSTEMS: Difficult to obtain. LABORATORY DATA: WBC 10, hemoglobin 10, hematocrit 31, platelets of 307,000. Sodium 146, potassium 3.6, chloride 112, bicarb 17, anion gap 17, BUN of 24, creatinine of 1.8, glucose of 62, calcium 8.2. Urine, negative for ketones or glucose. PHYSICAL EXAMINATION: GENERAL: Non-cooperative. VITAL SIGNS: Blood pressure is 121/66, heart rate 82, temperature 97.9, respiratory rate of 18. HEENT: Pupils are equal and reactive to light. Sclerae anicteric. NECK: No JVD. supple HEART: Regular. no M/R/G LUNGS: Clear. ABDOMEN: Positive bowel sounds. Soft. ND, NT EXTREMITIES: No clubbing, cyanosis, or edema. Right knee scab neuro: move all limbs, R sided weakness DIAGNOSES: 1. Hypoglycemia. 2. Diabetes, out of control. 3. Cognitive decline. 4. Parkinson's. 5. B12 deficiency. 6. Hypertension. 7. Chronic pancreatitis. 8. GERD. 9. Seizure. 10. Psychiatric illness. 11. Chronic kidney disease. 12. Coronary artery disease. 13. Chronic back pain. 14. hx CVA with right sided residual weakness PLAN: Frequent blood glucose monitoring. Dextrose infusion. Hold oral diabetic medication. We will obtain more information about oral diabetic agents from the brother when available. The patient as an outpatient on Januvia and metformin, which none of those agents should cause hypoglycemia. endocrine f/u heat CT w/o contrast hip/pelvis x-ray R shoulder x-ray eletrolyte replete as needed pain control hgbA1C, B12, vit D FULL CODE see orders Karsten Gottlieb MD Internal Medicine [phone] time of this note may not be the actual encounter time. time spent : 75 minutes Karsten Gottlieb MD Jan 01, 2020 13:33
[2020-01-01] MEDS: Methocarbamol 500mg tab ORAL SCH ×2 (13:37→18:00)
[2020-01-01] MEDS: LEVODOPA ORAL SCH ×2 (13:43→18:05)
[2020-01-01] MEDS: CARBIDOPA ORAL SCH ×2 (13:43→18:05)
--- NOTE | 2020-01-01 14:10 | NUR ---
NURSE NOTES: Patient is off the unit for CT and x-ray in stable condition. flushed IV.
[2020-01-01] MEDS ORDERED: DiphenhydrAMINE 25mg Tab ORAL PRN (14:30)
--- NOTE | 2020-01-01 14:52 | NUR ---
CASE MANAGEMENT: INITIAL REVIEW 69 YR OLD FEMALE BIBA FOR ABNORMAL LAB CC:UNRESPONSIVE . HYPERGLYCEMIA SI:HYPOGLYCEMIA . ANEMIA . CKD . PARKINSON HX: SUPRAPUBIC TUBE 98.1 89 16 152/72 98% ON RA NA+ 146 CL-112 BUN/CREAT 24/1.8 BG 62 CA+ 8.2 IS:IV D5 BOLUS X1 IV D50 BOLUS X1 NORCO PO X1 \: 4E MED SURG UNIT DCP: HOME WHEN STABLE PLAN: CT HEAD X-RAY SHOULDER X-RAY HIP
--- NOTE | 2020-01-01 14:55 | NUR ---
NURSE NOTES: Patient came back from procedure in stable condition but patient stated " I do not know what to describe but I feel like I see some bugs in the air." RN assessed the patient. Blood sugar is 133mg/dl. Patient is alert and oriented x4. no other issues. Patient took norco 5/325mg as PRN few hours ago and robaxin 500mg within a hour.Paged Dr. Gottlieb and awaiting for return call. Will continue to monitor.
--- NOTE | 2020-01-01 15:00 | NUR ---
PT Evaluation order received for PT evaluation and treatment. PT eval completed. Patient alert and oriented x 3. Patient required min A for bed mobility, transfers and gait with FWW x 6 feet at bedside. Patient reports has history of frequent falls at home even when using her FWW. Patient will benefit from skilled PT to increase strength, balance and gait stability. Patient will be seen 5x/wk x 2 weeks or for length of stay. Patient lives with her brother and he assists her at times particularly with showering. Her brother also does grocery shopping. Patient may need short term SNF to improve functional mobility prior to discharge home. Patient has her own FWW at home. No DME necessary at this time. Patient is safe to ambulate OOB with FWW with nursing when needed. Thank you for this referral.
--- NOTE | 2020-01-01 16:13 | Diagnostic Imaging Report ---
Indications: Headache, status post fall on head on Technique: Spiral acquisitions obtained through the brain. Angled axial and coronal 5 x 5 mm slices were reconstructed. Total dose length product 1072 mGycm. CTDI vol(s) 53 mGy. Dose reduction achieved using automated exposure control Comparison: 06/22/2018 Findings: No acute intracranial hemorrhage or edema. No mass effect nor midline shift. There is age-related enlargement of the ventricles and extra axial CSF spaces. The calvarium is intact. The mastoids are clear. The sinuses are clear. There is evidence of prior bilateral cataract surgery. The orbits are otherwise unremarkable. No significant interim change Impression: Chronic and age-related changes Negative for acute intracranial bleed or mass effect. The CT scanner at [facility] is accredited by the [employer] and the scans are performed using protocols designed to limit radiation exposure to as low as reasonably achievable to attain images of sufficient resolution adequate for diagnostic evaluation.
--- NOTE | 2020-01-01 16:15 | Diagnostic Imaging Report ---
Indication: Hip pain, status post fall Technique: One view of the pelvis. 2 views of both hips Comparison: 11/15/2011 Findings: No acute fractures. No dislocations. Joint spaces are preserved. The bones are osteoporotic. Fusion hardware is again demonstrated in the lumbar spine. Findings are unchanged Impression: No acute process Note, however, that in elderly os chronic patient's, nondisplaced hip or pelvic fractures can easily be occult. Consider cross-sectional imaging if there is high clinical suspicion
--- NOTE | 2020-01-01 16:20 | Diagnostic Imaging Report ---
Indication: Right shoulder pain Technique: 3 views of the right shoulder Comparison: none Findings: Bones are osteoporotic. No acute fractures. No dislocations Impression: No acute process Osteoporosis
--- NOTE | 2020-01-01 17:52 | NUR ---
NURSE NOTES: Patient has no episodes of seeing bugs and RN spoke to Dr. Gottlieb and relayed that patient is allergic to codeine and taking norco. MD is aware to give tramadol for mod pain and norco for severe. Will continue to monitor.
[2020-01-01] MEDS ORDERED: traMADol 50mg tab ORAL PRN (17:53)
--- NOTE | 2020-01-01 18:25 | NUR ---
NURSE NOTES:WOUND CARE NOTES:Pt presented on admission with multiple contusions R temporal, multiple areas both lower ext from fall in community. Dry scabbed abrasion neftali L tibia. No erythema or elevation in skin temp. Scattered areas of hyperpigmentation noted to buttocks.non-tender when palpated.Both heels are boggy with non-blanching erythema. Pt complained R heel tenderness when minimally palpated. Pt demonstrated ability to self reposition when cued. Educated pt on wound prevention. Encouraged to frequently reposition while in bed. Both heels floated with pillows off mattress. Tx.Plan: Apply Moisture Barrier Paste to Buttocks. Cover Sacrum with Optifoam drsg. Changee very 3 days and prn. Apply Cavilon Skin BArrier to both heels. Cover each heel with Optifoam drsg. Changee very 7 days and prn. Reposition at least every 2hours or as tolerated. Off-load heels with pillow
--- NOTE | 2020-01-01 18:34 | NUR ---
NURSE NOTES: Patient refused to take robaxin. Re-educated on meds.
--- NOTE | 2020-01-01 19:00 | NUR ---
NURSE NOTES: Patient is in stable condition, no changes in LOC, no episodes of seeing bugs again. Patient is alert and oriented x3-4. she said " I feel fine."
--- NOTE | 2020-01-01 19:20 | NUR ---
HAND-OFF: Report given to Flori and endorsed plan of care.
--- NOTE | 2020-01-01 19:45 | NUR ---
NURSE NOTES: received pt. asleep in bed, no sob noted and in s/s of distress; no complaints of pain. Call light placed within reach, bed in lowest position and locked and with bed alarm on.
[2020-01-01 19:54] LABS: % IRON SATURATION 9 % (15-50); IRON 34 ug/dL (50-175); TOTAL IRON BINDING CAPACITY 380 ug/dL (250-450)
[2020-01-01 20:06] LABS: CHOLESTEROL 186 MG/DL (< 200); FERRITIN 33 NG/ML (8-388); HDL CHOLESTEROL 48 MG/DL (40-60); PHOSPHORUS 4.9 MG/DL (2.5-4.9); TRIGLYCERIDES 194 MG/DL (30-150)
[2020-01-02] VITALS: BP 124/61
[2020-01-02 04:00] VITALS: BP 165/74
[2020-01-02] MEDS: Dicyclomine 10mg Cap ORAL SCH ×3 (05:53→17:11)
[2020-01-02] MEDS: NovoLOG Insulin Flexpen SUBQ SCH ×3 (05:54→17:13)
[2020-01-02 07:03] LABS: ANION GAP 10 mmol/L (5-15); BLOOD UREA NITROGEN 17 mg/dL (7-18); CALCIUM 8.4 MG/DL (8.5-10.1); CARBON DIOXIDE 24 MMOL/L (21-32); CHLORIDE 111 MMOL/L (98-107); CREATININE 1.4 MG/DL (0.55-1.30); PHOSPHORUS 3.4 MG/DL (2.5-4.9); POTASSIUM 4.1 MMOL/L (3.5-5.1); SODIUM 145 MMOL/L (136-145)
--- NOTE | 2020-01-02 07:19 | General Progress Note ---
Assessment/Plan Problem List: (1) Hypoglycemia (2) Diabetes (3) Altered mental status (4) Parkinsons Assessment/Plan: hypoglycemia due to Glipizide continue IVF and DC once glucose reaches > 200 mg/dL continue Novolog insulin sliding scale ac / hs hypoglycemia protocol in order Subjective ROS Limited/Unobtainable: Yes Allergies: Coded Allergies: ACETAMINOPHEN (Verified Allergy, Severe, 12/18/12) ASPIRIN (Verified Allergy, Unknown, 11/10/10) CODEINE (Verified Allergy, Unknown, RASH, 10/25/11) MEPERIDINE (Verified Allergy, Unknown, 11/10/10) PENICILLINS (Verified Allergy, Unknown, RASH, 10/25/11) SHELLFISH (Verified Allergy, Unknown, 11/10/10) SULFA (SULFONAMIDE ANTIBIOTICS) (Verified Allergy, Unknown, 11/10/10) Uncoded Allergies: tomatoes (Allergy, Unknown, 01/01/20) Subjective events noted - interval notes reviewed glucose values are stable without recurrent of hypoglycemia she is on D5 1/2NS at 75 cc/hour Item Value Date Time Bedside Blood Glucose 107 mg/dl 01/02/20 0630 Bedside Blood Glucose 142 mg/dl H 01/01/20 2100 Bedside Blood Glucose 123 mg/dl H 01/01/20 1630 Bedside Blood Glucose 90 mg/dl 01/01/20 1130 Objective Last 24 Hour Vital Signs Date Time Temp Pulse Resp B/P (MAP) Pulse Ox O2 Delivery O2 Flow Rate FiO2 01/02/20 05:17 165/74 01/02/20 04:00 98.2 99 18 165/74 (104) 96 01/02/20 00:00 97.7 68 16 124/61 (82) 96 01/01/20 21:00 Room Air 01/01/20 21:00 98.1 74 14 128/59 (82) 74 01/01/20 16:00 97.7 67 18 138/66 (90) 100 01/01/20 12:00 98.4 85 18 125/62 (83) 98 01/01/20 11:53 82 121/66 01/01/20 09:00 Room Air 01/01/20 08:00 97.9 82 18 121/66 (84) 98 01/01/20 07:22 99.5 Intake and Output 01/01/20 01/02/20 19:00 07:00 Intake Total 720 ml 990 ml Output Total 600 ml 1300 ml Balance 120 ml -310 ml Intake Oral 720 ml 240 ml IV Total 750 ml Output Urine Total 600 ml 1300 ml # Voids 4 1 Laboratory Tests 01/02/20 05:12: Sodium Level 145, Potassium Level 4.1, Chloride Level 111H, Carbon Dioxide Level 24, Anion Gap 10, Blood Urea Nitrogen 17, Creatinine 1.4H, Estimat Glomerular Filtration Rate 45.0, Glucose Level 114H, Calcium Level 8.4L, Phosphorus Level 3.4, Magnesium Level 2.3, Vitamin D 25-Hydroxy [Pending], 25- Hydroxy Vitamin D2 [Pending], 25-Hydroxy Vitamin D3 [Pending] Height (Feet): 5 Height (Inches): 6.00 Weight (Pounds): 126 General Appearance: no apparent distress Neck: normal alignment Cardiovascular: normal rate Respiratory/Chest: lungs clear Abdomen: normal bowel sounds Objective Current Medications Medications (Trade) Dose Ordered Sig/Shantell Route PRN Reason Start Time Stop Time Status Last Admin Dose Admin Acetaminophen (Tylenol) 650 mg Q6H PRN ORAL mild pain and temp.>100.5 01/01/20 06:15 01/31/20 06:14 Acetaminophen/ Hydrocodone Bitart ([place] 5/325) 1 tab Q4H PRN ORAL Severe Pain (Pain Scale 7-10) 01/01/20 17:52 01/08/20 17:51 Atenolol (Tenormin) 100 mg DAILY ORAL 01/01/20 10:45 01/31/20 10:44 01/01/20 11:53 Atorvastatin Calcium (Lipitor) 20 mg BEDTIME ORAL 01/02/20 21:00 04/01/20 20:59 Carbidopa/Levodopa (Sinemet CR 25/ 100) 1 tab TID ORAL 01/01/20 13:00 01/31/20 12:59 01/01/20 18:05 Clonidine HCl (Catapres Tab) 0.1 mg Q4H PRN ORAL For High Blood Pressure >160 01/01/20 08:30 03/31/20 08:29 01/02/20 05:17 Cyanocobalamin (Vitamin B12) 1,000 mcg DAILY SUBQ 01/02/20 09:00 01/04/20 08:59 Dextrose (Dextrose 50%) 25 ml Q30M PRN IV Hypoglycemia 01/01/20 06:15 03/31/20 06:14 Dextrose (Dextrose 50%) 50 ml Q30M PRN IV Hypoglycemia 01/01/20 06:15 03/31/20 06:14 Dextrose/Sodium Chloride 1,000 ml @ 75 mls/hr [id number] IV 01/01/20 06:15 01/31/20 06:14 01/01/20 20:50 Dicyclomine HCl (Bentyl) 20 mg AC+HS ORAL 01/01/20 11:30 01/31/20 11:29 01/01/20 20:42 Diphenhydramine HCl (Benadryl) 25 mg Q6H PRN ORAL Itching 01/01/20 14:30 01/31/20 14:29 Insulin Aspart (NovoLOG) BEFORE MEALS AND HS SUBQ 01/01/20 06:30 03/31/20 06:29 Iron Sucrose 100 mg/Sodium Chloride 60 ml @ 240 mls/hr DAILY@2100 IV 01/02/20 21:00 02/01/20 20:59 Loperamide HCl (Imodium) 2 mg TID PRN ORAL DIARRHEA 01/01/20 10:30 01/31/20 10:29 Methocarbamol (Robaxin) 500 mg TID ORAL 01/01/20 13:00 01/31/20 12:59 01/01/20 13:37 Ondansetron HCl (Zofran) 4 mg Q4H PRN IVP Nausea & Vomiting 01/01/20 06:15 01/31/20 06:14 Pantoprazole (Protonix) 40 mg DAILY ORAL 01/01/20 10:45 01/31/20 10:44 01/01/20 11:52 Tramadol HCl (Ultram) 50 mg Q6H PRN ORAL Moderate Pain (Pain Scale 4-6) 01/01/20 17:53 01/08/20 17:52 Vitamin D (Vitamin D) 3,000 intlu DAILY ORAL 01/02/20 09:00 02/01/20 08:59 Nitin Ramirez MD Jan 02, 2020 07:19
--- NOTE | 2020-01-02 07:35 | NUR ---
HAND-OFF: Report given to Caitie ABREU. Patient asleep.
--- NOTE | 2020-01-02 07:59 | NUR ---
NURSE NOTES: Report received from Arnoldo RN and Tereso RN. Pt awake in bed, no SOB, alert and oriented x 3-4, no c/o any discomfort at this time, bed in lowest position with breaks engaged and alarm on, IV line on L FA patent and intact, will continue to monitor and proceed with plan of care, call light within reach.
[2020-01-02 08:00] VITALS: BP 149/68
[2020-01-02] MEDS ORDERED: Vitamin B12 1000mcg/ml Inj SUBQ SCH (09:00)
[2020-01-02] MEDS ORDERED: Vitamin D 1000 IU Tab ORAL SCH (09:00)
[2020-01-02] MEDS: CARBIDOPA ORAL SCH ×3 (09:41→17:11)
[2020-01-02] MEDS: D5 1/2NS 1,000 ML IV SCH (09:41)
[2020-01-02] MEDS: LEVODOPA ORAL SCH ×3 (09:41→17:11)
[2020-01-02] MEDS: Methocarbamol 500mg tab ORAL SCH ×3 (09:42→17:11)
[2020-01-02 12:00] VITALS: BP 147/83
--- NOTE | 2020-01-02 12:19 | Internal Med Progress Note ---
Subjective Date of Service: Jan 02, 2020 Physician Name Karsten Gottlieb Attending Physician Karsten Gottlieb MD Current Medications Medications (Trade) Dose Ordered Sig/Shantell Route PRN Reason Start Time Stop Time Status Last Admin Dose Admin Acetaminophen (Tylenol) 650 mg Q6H PRN ORAL mild pain and temp.>100.5 01/01/20 06:15 01/31/20 06:14 Acetaminophen/ Hydrocodone Bitart ([place] 5/325) 1 tab Q4H PRN ORAL Severe Pain (Pain Scale 7-10) 01/01/20 17:52 01/08/20 17:51 01/02/20 09:41 Atenolol (Tenormin) 100 mg DAILY ORAL 01/01/20 10:45 01/31/20 10:44 01/02/20 09:42 Atorvastatin Calcium (Lipitor) 20 mg BEDTIME ORAL 01/02/20 21:00 04/01/20 20:59 Carbidopa/Levodopa (Sinemet CR 25/ 100) 1 tab TID ORAL 01/01/20 13:00 01/31/20 12:59 01/02/20 09:41 Clonidine HCl (Catapres Tab) 0.1 mg Q4H PRN ORAL For High Blood Pressure >160 01/01/20 08:30 03/31/20 08:29 01/02/20 05:17 Cyanocobalamin (Vitamin B12) 1,000 mcg DAILY SUBQ 01/02/20 09:00 01/04/20 08:59 01/02/20 09:42 Dextrose (Dextrose 50%) 25 ml Q30M PRN IV Hypoglycemia 01/01/20 06:15 03/31/20 06:14 Dextrose (Dextrose 50%) 50 ml Q30M PRN IV Hypoglycemia 01/01/20 06:15 03/31/20 06:14 Dextrose/Sodium Chloride 1,000 ml @ 75 mls/hr [id number] IV 01/01/20 06:15 01/31/20 06:14 01/02/20 09:41 Dicyclomine HCl (Bentyl) 20 mg AC+HS ORAL 01/01/20 11:30 01/31/20 11:29 01/02/20 11:48 Diphenhydramine HCl (Benadryl) 25 mg Q6H PRN ORAL Itching 01/01/20 14:30 01/31/20 14:29 Insulin Aspart (NovoLOG) BEFORE MEALS AND HS SUBQ 01/01/20 06:30 03/31/20 06:29 01/02/20 11:49 Iron Sucrose 100 mg/Sodium Chloride 60 ml @ 240 mls/hr DAILY@2100 IV 01/02/20 21:00 02/01/20 20:59 Loperamide HCl (Imodium) 2 mg TID PRN ORAL DIARRHEA 01/01/20 10:30 01/31/20 10:29 Methocarbamol (Robaxin) 500 mg TID ORAL 01/01/20 13:00 01/31/20 12:59 01/02/20 09:42 Ondansetron HCl (Zofran) 4 mg Q4H PRN IVP Nausea & Vomiting 01/01/20 06:15 01/31/20 06:14 Pantoprazole (Protonix) 40 mg DAILY ORAL 01/01/20 10:45 01/31/20 10:44 01/02/20 09:41 Tramadol HCl (Ultram) 50 mg Q6H PRN ORAL Moderate Pain (Pain Scale 4-6) 01/01/20 17:53 01/08/20 17:52 Vitamin D (Vitamin D) 3,000 intlu DAILY ORAL 01/02/20 09:00 02/01/20 08:59 01/02/20 09:42 Allergies: Coded Allergies: ACETAMINOPHEN (Verified Allergy, Severe, 12/18/12) ASPIRIN (Verified Allergy, Unknown, 11/10/10) CODEINE (Verified Allergy, Unknown, RASH, 10/25/11) MEPERIDINE (Verified Allergy, Unknown, 11/10/10) PENICILLINS (Verified Allergy, Unknown, RASH, 10/25/11) SHELLFISH (Verified Allergy, Unknown, 11/10/10) SULFA (SULFONAMIDE ANTIBIOTICS) (Verified Allergy, Unknown, 11/10/10) Uncoded Allergies: tomatoes (Allergy, Unknown, 01/01/20) Objective Last Vital Signs Date Time Temp Pulse Resp B/P (MAP) Pulse Ox O2 Delivery O2 Flow Rate FiO2 01/02/20 10:27 97.7 01/02/20 09:42 71 149/68 01/02/20 09:00 Room Air 01/02/20 08:00 20 96 Laboratory Tests Test 01/02/20 05:12 Sodium Level 145 MMOL/L (136-145) Potassium Level 4.1 MMOL/L (3.5-5.1) Chloride Level 111 MMOL/L (98-107) H Carbon Dioxide Level 24 MMOL/L (21-32) Anion Gap 10 mmol/L (5-15) Blood Urea Nitrogen 17 mg/dL (7-18) Creatinine 1.4 MG/DL (0.55-1.30) H Estimat Glomerular Filtration Rate 45.0 mL/min (>60) Glucose Level 114 MG/DL (74-106) H Calcium Level 8.4 MG/DL (8.5-10.1) L Phosphorus Level 3.4 MG/DL (2.5-4.9) Magnesium Level 2.3 MG/DL (1.8-2.4) Vitamin D 25-Hydroxy Pending 25-Hydroxy Vitamin D2 Pending 25-Hydroxy Vitamin D3 Pending Intake and Output 01/01/20 01/02/20 18:59 06:59 Intake Total 720 ml 990 ml Output Total 600 ml 1300 ml Balance 120 ml -310 ml Intake Oral 720 ml 240 ml IV Total 750 ml Output Urine Total 600 ml 1300 ml # Voids 4 1 Karsten Gottlieb MD Jan 02, 2020 12:19
--- NOTE | 2020-01-02 13:00 | Nephrology Progress Note ---
Assessment/Plan Plan #MAR- due to volume depletion #DM- with hypoglycemia #chronic pancreatitis #h/o CVA #HTN #Parkisons diseae - admit inpatient - IV hydration with D5 - monitor BMP - replete lytes prn - endocrine eval - resume home antihypertensives - hold arb for now - avoid nephrotoxins Time spent 70 minutes -> greater than 50% on care coordination and counseling Subjective ROS Limited/Unobtainable: No Constitutional: Denies: no symptoms, chills, diaphoresis, fever, malaise, weakness, other HEENT: Denies: no symptoms, eye pain, blurred vision, tearing, double vision, ear pain, ear discharge, nose pain, nose congestion, throat pain, throat swelling, mouth pain, mouth swelling, other Genitourinary: Denies: no symptoms, burning, discharge, frequency, flank pain, hematuria, incontinence, pain, urgency, other Neurologic/Psychiatric: Denies: no symptoms, anxiety, depressed, emotional problems, headache, numbness, paresthesia, pre-existing deficit, seizure, tingling, tremors, weakness, other Subjective BG improving Cr slowly coming down no chest pain or SOB Objective Objective Last 24 Hour Vital Signs Date Time Temp Pulse Resp B/P (MAP) Pulse Ox O2 Delivery O2 Flow Rate FiO2 01/02/20 10:27 97.7 01/02/20 09:42 71 149/68 01/02/20 09:00 Room Air 01/02/20 08:00 97.7 71 20 149/68 (95) 96 01/02/20 05:17 165/74 01/02/20 04:00 98.2 99 18 165/74 (104) 96 01/02/20 00:00 97.7 68 16 124/61 (82) 96 01/01/20 21:00 Room Air 01/01/20 21:00 98.1 74 14 128/59 (82) 74 01/01/20 16:00 97.7 67 18 138/66 (90) 100 Intake and Output 01/01/20 01/02/20 19:00 07:00 Intake Total 720 ml 990 ml Output Total 600 ml 1300 ml Balance 120 ml -310 ml Intake Oral 720 ml 240 ml IV Total 750 ml Output Urine Total 600 ml 1300 ml # Voids 4 1 Laboratory Tests 01/02/20 05:12: Sodium Level 145, Potassium Level 4.1, Chloride Level 111H, Carbon Dioxide Level 24, Anion Gap 10, Blood Urea Nitrogen 17, Creatinine 1.4H, Estimat Glomerular Filtration Rate 45.0, Glucose Level 114H, Calcium Level 8.4L, Phosphorus Level 3.4, Magnesium Level 2.3, Vitamin D 25-Hydroxy [Pending], 25- Hydroxy Vitamin D2 [Pending], 25-Hydroxy Vitamin D3 [Pending] Height (Feet): 5 Height (Inches): 6.00 Weight (Pounds): 126 General Appearance: WD/WN, no apparent distress, alert EENT: PERRL/EOMI Neck: non-tender, normal alignment Cardiovascular: normal peripheral pulses, normal rate Respiratory/Chest: chest wall non-tender, lungs clear Abdomen: normal bowel sounds, non tender, soft Extremities: normal range of motion Neurologic: alert, oriented x 3, responsive Jay Dudley M.D. Jan 02, 2020 13:00
--- NOTE | 2020-01-02 14:10 | NUR ---
*-*DISCHARGE PLANNING*-* [facility] P: [phone] F: [phone]
--- NOTE | 2020-01-02 14:33 | NUR ---
CASE MANAGEMENT: REVIEW 01/02/20 SI:HYPOGLYCEMIA . ANEMIA . CKD . PARKINSON HX: SUPRAPUBIC TUBE 98.1 61 20 147/83 100% ON RA CO2 111 CREAT 1.4 IS:IV D5/NS @75ML/HR TENORMIN PO QD PROTONIX PO QD NORCO PO Q4/PRN \: 4E MED SURG UNIT DCP: HOME WITH HOME HEALTH PLAN: LABS PENDING- POSSIBLE DC IN AM
--- NOTE | 2020-01-02 15:03 | NUR ---
*-*DISCHARGE PLANNED*-* PATIENT HAS BEEN ACCEPTED WITH: [facility] P: [phone] S/W SWATI, WHO STATED THEY WILL SERVICE PATIENT UPON DISCHARGE.
[2020-01-02 16:00] VITALS: BP 144/82
--- NOTE | 2020-01-02 19:46 | NUR ---
HAND-OFF: Report given to BRADY Magaña.
--- NOTE | 2020-01-02 20:51 | NUR ---
NURSE NOTES: Patient went home against medical advice and signed the AMA form. Dr Gottlieb notified and said Gaurang.
[2020-01-02] MEDS ORDERED: Iron Sucrose 100 MG in NS 55 ML IVPB SCH (21:00)
[2020-01-02] MEDS ORDERED: Iron Sucrose 100 MG in NS 55 ML IV SCH (21:00)
[2020-01-02] MEDS ORDERED: Atorvastatin 20mg tab ORAL SCH (21:00)
--- NOTE | 2020-01-04 12:07 | Discharge Summary ---
Discharge Summary Discharge Summary _ DATE OF ADMISSION: 01/01/2020 DATE OF DISCHARGE: 01/02/2020 Patient left AGAINST MEDICAL ADVICE REASON FOR ADMISSION: 69 years old female with past medical history of hypertension, GERD, seizure disorder, chronic kidney disease, coronary artery disease, chronic back pain, chronic pancreatitis, B12 deficiency, seizure disorder, psychiatric illness, was brought to the hospital after her brother called 911 and found her unresponsive. Patient was diaphoretic and hypoglycemic. Blood sugar was in the 20s. D10 was given. Patient responded and went back to her baseline. After giving dextrose vital signs were stable. Laboratory work-up revealed no leukocytosis, hemoglobin 10.3 , hematocrit 31. Sodium 146, chloride 112. Anion gap 17. BUN 24, creatinine 1.8. Glucose 62. Urinalysis revealed no evidence of urinary tract infection. CT of the head revealed no evidence of acute intracranial pathology. Chronic and age-related changes noted. In emergency department patient started on IV fluids with dextrose and admitted to medical surgical floor for further management. CONSULTANTS: plant protection guard Dr. Ramirez microstrategy reports developer Dr. Dudley HOSPITAL COURSE: Patient admitted to medical surgical floor. Patient was continued with infusion of dextrose. Oral anti-glycemic medication were hold. Diabetic diet provided. Januvia and metformin not known to cause hypoglycemia further information was pending upon reaching her brother who was temporarily unavailable. [facility] Hospitalist seen and evaluated patient Hemoglobin A1c 6.6 at goal. TSH within normal limits. Per plant protection guard, hypoglycemia was due to glipizide, that patient was taking. [facility] Hospitalist recommended continue IV fluids and DC IV fluids once glucose reaches level above 200. Blood sugar stabilized , and IV fluids were discontinued. Blood sugar was managed with sliding scale of insulin. Hypoglycemia protocol was in order. Right shoulder x-ray revealed no acute process. Osteoporosis noted. X-ray of the bilateral hip revealed no acute process. Pain management was addressed. B12 low 189. Patient started on B12 replacement. Renal parameters and electrolytes were closely monitored. Electrolytes corrected as needed. Creatinine from 1.8 down to 1.4. Per microstrategy reports developer, acute kidney injury was likely due to volume depletion. Home antihypertensive continued. ARB was hold as per microstrategy reports developer recommendation due to MAR. Statin continued. GI prophylaxis provided. On late e afternoon patient decided to go home AGAINST MEDICAL ADVICE. The risks and consequences of signing AGAINST MEDICAL ADVICE were discussed with patient in detail. Patient verbalized understanding, nevertheless signed AMA form and left. FINAL DIAGNOSES: Acute kidney injury due to volume depletion on chronic kidney disease Diabetes mellitus with hypoglycemia Altered mental status due to metabolic encephalopathy secondary to hypoglycemia - resolved B12 deficiency Chronic pancreatitis History of CVA with right-sided weakness Hypertension Coronary artery disease Chronic back pain Parkinson disease GERD Seizure disorder I have been assigned to dictate discharge summary for this account. I was not involved in the patient's management. Elaine Hope NP Jan 04, 2020 12:07
== END 2020-01-02 20:30 | disposition left against medical advice (07) | DRG 638 ==
LOC: EDUNIT# 01:41 → EDBD 01:41 → EMR 01:54 → 4E 03:14 → EDBEDREQ 03:24
DX: E11.649 Type 2 diabetes mellitus with hypoglycemia without coma (principal); I69.351 Hemiplegia and hemiparesis following cerebral infarction affecting right dominant side; K86.1 Other chronic pancreatitis; T38.3X5A Adverse effect of insulin and oral hypoglycemic [antidiabetic] drugs, initial encounter; N17.9 Acute kidney failure, unspecified; I12.9 Hypertensive chronic kidney disease with stage 1 through stage 4 chronic kidney disease, or unspecified chronic kidney disease; E11.22 Type 2 diabetes mellitus with diabetic chronic kidney disease; N18.9 Chronic kidney disease, unspecified; G20 Parkinson's disease; Z88.6 Allergy status to analgesic agent; Z88.0 Allergy status to penicillin; Z88.2 Allergy status to sulfonamides; Z88.8 Allergy status to other drugs, medicaments and biological substances; K21.9 Gastro-esophageal reflux disease without esophagitis; I25.10 Atherosclerotic heart disease of native coronary artery without angina pectoris; Z90.3 Acquired absence of stomach [part of]; Z90.49 Acquired absence of other specified parts of digestive tract; Z98.1 Arthrodesis status; E53.8 Deficiency of other specified B group vitamins
CPT/HCPCS: 36415; 70450; 73521; 80048; 80061; 81001; 82306; 82607; 82728; 82962; 83036; 83540; 83550; 83735; 84100; 84443; 85025; 96374; 99285; J1815

== ENCOUNTER 2020-03-16 17:06 | Emergency (ER) | payer MEDICARE, OTHER ==
[~2020-03-16] VITALS: Ht 170.2 cm; Wt 55.3 kg
[~2020-03-16 17:06] MED LIST changes: +ATENOLOL100 MG ORAL; +CATAPRES-TTS 11 EACH TDERMAL; +CREON DR 24,001 EACH PO; +DICYCLOMINE HCL10 MG ORAL; +GLIPIZIDE5 MG ORAL; +IMODIUM2 MG ORAL; +NORCO 5-325 TA1 EAC1 ORAL; +PANTOPRAZOLE SO40 MG ORAL; +PAROXETINE HC12.5 MG ORAL; +ROBAXIN-500MG ORAL; +SINEMET CR 25/101 EA ORAL; +[UNRECOGNIZED DRUG - REMARK]
--- NOTE | 2020-03-16 17:10 | NUR ---
ED Nurse Note: Pt was brought in to ED by brother from home, s/p fall today and has laceration on right side of her head from hitting a table. Pt is AOx4, calm and cooperative. Pt denies loss of consciouness, stated she just felt dizzy afterwards. Pt's VSS, on RA, afebrile on triage. Placed on bed and gown; ERMD at bedside.
[2020-03-16] MEDS ORDERED: Tetanus/Diptheria/Pertussis IM ONE (17:30)
--- NOTE | 2020-03-16 17:39 | Emergency Room Report ---
History of Present Illness General Chief Complaint: Laceration Source: Patient Present Illness HPI Patient is a -[place] 70-year-old female with past medical history of Parkinson's with chronic falls, diabetes, hypertension, chronic pancreatitis who presents with chief complaint of close head injury prior to arrival. Patient states that she is not taking blood thinners. Patient was walking in her kitchen and suffered a mechanical fall striking the right side of her scalp against a marble countertop. She states that there was moderate blood loss on scene. Denies syncope, vision changes, weakness, chest pain, back pain, neck pain, melena, hematochezia, dysuria, hematuria, or fever or other complaints. She is unaware when her last tetanus shot was. The patient's symptoms were gradual onset, severity was moderate, duration since 1 day. Quality: Aching Parkinson's disease, diabetes, hypertension Past medical history:, Parkinson's, diabetes, hypertension chronic pancreatitis Past surgical history: Knee surgery Smoking: Denies Alcohol use: Denies Drug use: Denies Review of systems: CONST: No fevers or chills, No night sweats PULMONARY: No productive cough, No shortness of breath CARDIAC: No chest pain, No palpitations GI: No vomiting, No diarrhea , No melena_or_BRBPR : No dysuria, No hematuria, No discharge NEURO: No new_focal_weakness_or_numbness, No confusion, No vision changes 14 point Review of Systems is otherwise negative except per HPI Physical Exam: GENERAL: Awake_alert_ nontoxic, no acute distress Spo2 96% on RA -normal EYES: Extraocular muscles are intact. Conjunctivae clear. Lids without swelling ENT: External nose and ear normal_in_appearance. Oropharynx clear. Head_ atraumatic, Moist_oral_mucosa NECK: No JVD. No meningismus. No thyromegaly. Supple. Trachea midline RESP: Normal respiratory effort. Symmetric rise. No stridor. Clear_to_ auscultation_No_rales_No_wheezes CARDIAC: Regular rate and regular rhytm. No_significant pedal edema. ABDOMEN: Soft. Nondistended. Nontender_No_rebound_or_guarding. MSK: Normal muscle tone, without rigidity. Extremities without asymmetric deformity or swelling. SKIN: Warm and dry. No visible cyanosis or pallor NEUROLOGIC: Alert, oriented x3. Motor_and_sensation_grossly_intact. No truncal ataxia. Gait_normal Psych: Normal mood and affect, normal judgment and insight - COORDINATION OF CARE Case was discussed with: Patient , Patient's Family Any labs and imaging that were ordered were interpreted as part of the medical decision making: Medical Decision Making/Plan: I reviewed previous medical records. Patient was recently admitted to the hospital for altered mental status secondary to hypoglycemia from glipizide and concomitant MAR. She left AGAINST MEDICAL ADVICE and currently lives at home with her brother Guy She denies any prodromal symptoms or syncope. She denies blood thinner use. I spoke with Guy who confirms that patient lives with him. She is typically supposed to walk only with a walker, however he states she is "stubborn" and refuses to use one therefore has frequent falls at home. They were preparing to leave the house today when she suffered a mechanical trip and fall. Fall was unwitnessed but Guy states he immediately went from one room to the next and pt had no LOC, Guy states that even though her sister has dementia , she has otherwise been in her normal state of health with no fever, cough, chills or any complaints at home. Differential diagnosis for the patients symptoms include mechanical fall 2/2 deconditioning vs parkinsons vs causes of peripheral vertigo (including BPPV, vestibular neuritis, Menieres disease, viral labyrinthitis), malignant arrhythmias, obstructive heart disease (critical aortic stenosis, hypertrophic cardiomyopathy), acute anemia, severe dehydration, electrolyte abnormalities, among others. On examination, patient has a non-arterial bleeding right parietal scalp laceration that was repaired at bedside. Adequate hemostasis was achieved. Tetanus status is updated. Patient tolerated procedure well without complications. Pt was informed that wander will need removal in 7-10 days with f/u wound check in [address] of the head showed no ICH or fx. EKG showed sinus bradycardia with incomplete right bundle branch block. She has nonspecific ST changes in the inferior leads. No acute ST elevation ID. I did compare to previous EKG. Patient was noted to have incomplete right bundle branch block previously. No new findings. Labs showed stable anemia. No other acute emergent abnormalities. No signs of infection. Chest x-ray showed no acute disease. Patient is refusing hospitalization. Guy is refusing hospitalization. Prefer discharge home. 12-lead EKG (interpreted by me) Time: 1731 Indication: Rhythm analysis Tracing visualized and Interpreted by me. Rhythm: Sinus bradycardia 55 Rate: 55 bpm QTc: 428 Morphology: No_significant_ST_elevations_or_depressions, No STEMI Impression: Sinus bradycardia. Incomplete right bundle branch block. Nonspecific ST changes in the inferior leads. Procedure Note Laceration Repair by me: Anesthesia: None required Location: Right parietal scalp approximately 7 cm Tendon/Joint/Nerves: No injury Foreign body: None detected after copious irrigation and exploration Technique: Staple x6 Complexity: No subcutaneous sutures/mucosal repair/edge excision Post Closure Length:7 cm Wound is hemostastic No evidence of compartment syndrome, neurologic injury, vascular injury, open joint, tendon laceration, or foreign body. Patient was instructed that the wander will need removal within 10 days. Recommend wound check in 48 hours. The patient denies any external blood loss and has no significant pallor or evidence of acute anemia as a cause of their symptoms. Hemoglobin is not severely low, and acute blood transfusion is not indicated. In addition, the patient has no loud murmur or evidence of significant obstructive heart disease, symptoms are not in the setting of exertion. The patient is neurologically intact, with normal cerebellar exam, without any evidence of central vertigo as a cause of their symptoms. They appear well hydrated without any evidence of severe dehydration or acute hypovolemia. The patient was observed for a period of time, with symptoms improved, and no emergent cause of their symptoms. The patient appears stable for discharge and to follow up with their regular doctor. Pertinent results reviewed with the patient. I educated the patient on the current treatment plan including the risks, benefits, and alternatives. I also discussed the extent and limitations of the current evaluation. The patient expressed understanding and agreement with plan. I recommended PMD follow-up within 1-2 days. Also advised that the patient return to the Emergency Department as soon as possible if they experience any new, persistent, or worsening symptoms. 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 Nursing Documentation-PMH Past Medical History: No History, Except For Hx Cardiac Problems: No Hx Hypertension: Yes Hx Pacemaker: No Hx Asthma: No Hx COPD: No Hx Diabetes: Yes Hx Cancer: No Hx Gastrointestinal Problems: Yes - pancreatitis Hx Dialysis: No Hx Neurological Problems: Yes - Parkinson, dementia Hx Cerebrovascular Accident: Yes - right sided weakness Hx Parkinson's Disease: Yes Hx Seizures: Yes Hx Dizziness: Yes Hx Headaches: Yes Physical Exam Vital Signs Date Time Temp Pulse Resp B/P (MAP) Pulse Ox O2 Delivery O2 Flow Rate FiO2 03/16/20 17:13 98.4 64 17 144/73 (96) 98 Room Air Sp02 EP Interpretation: reviewed, normal Medical Decision Making Diagnostic Impression: Primary Impression: Scalp laceration Additional Impressions: Closed head injury Parkinson disease Diabetes DM (diabetes mellitus) Contusion Rhythm Strip Diag. Results Rhythm Strip Time: 17:31 EP Interpretation: yes Rhythm: no PVC's, no ectopy Other Impression Sinus bradycardia Chest X-Ray Diagnostic Results Chest X-Ray Diagnostic Results : Chest X-Ray Ordered: Yes PA Scribe Text Chest X-Ray: Views: 1 view(s) Indication: Mechanical fall Findings: Normal heart size. Mediastinum normal. No infiltrate. Impression: No acute disease The X-ray(s) were independently viewed and interpreted contemporaneously Electronically signed by Latonya burnett DO Reevaluation Time: 17:31 Last Vital Signs Date Time Temp Pulse Resp B/P (MAP) Pulse Ox O2 Delivery O2 Flow Rate FiO2 03/16/20 17:13 98.4 64 17 144/73 (96) 98 Room Air Status: improved Disposition: HOME, SELF-CARE Admit Decision Time: 17:31 Condition: Stable Patient Instructions: Laceration Care, Adult Additional Instructions: Instructions for patient/switch maker: Follow up with your physician in 1 to 2 days for wound check. Wander will need removal in 7 to 10 days depending on wound healing. Please use your walker to ambulate to avoid falls. Follow-up with your doctor sooner if your condition requires a more timely clinical reevaluation. Return to the emergency department immediately if you feel that your condition is worsening or if you have any new or concerning symptoms. Review your discharge instructions and take any prescriptions given as instructed. Latonya Tidwell D.O. Mar 16, 2020 17:39
--- NOTE | 2020-03-16 17:49 | NUR ---
ED Nurse Note: pt was taken to ct on stable condition.
[2020-03-16 17:55] VITALS: BP 144/73
[2020-03-16 17:57] LABS: BASOPHILS % (AUTO) 1.2 % (0.0-2.0); HEMATOCRIT 35.6 % (37.0-47.0); LYMPHOCYTES % (AUTO) 28.5 % (20.0-45.0); MEAN CORPUSCULAR VOLUME 95 FL (80-99); MONOCYTES % (AUTO) 9.8 % (1.0-10.0); NEUTROPHILS % (AUTO) 57.6 % (45.0-75.0); PLATELET COUNT 224 K/UL (150-450); RED BLOOD COUNT 3.74 M/UL (4.20-5.40); RED CELL DISTRIBUTION WIDTH 14.6 % (11.6-14.8); WHITE BLOOD COUNT 6.3 K/UL (4.8-10.8)
--- NOTE | 2020-03-16 18:08 | NUR ---
ED Nurse Note: pt returned from CT
[2020-03-16 18:09] LABS: ANION GAP 2 mmol/L (5-15); BLOOD UREA NITROGEN 16 mg/dL (7-18); CALCIUM 9.3 MG/DL (8.5-10.1); CARBON DIOXIDE 28 MMOL/L (21-32); CHLORIDE 103 MMOL/L (98-107); CREATININE 1.2 MG/DL (0.55-1.30); POTASSIUM 4.5 MMOL/L (3.5-5.1); SODIUM 133 MMOL/L (136-145)
[2020-03-16 18:14] LABS: ALANINE AMINOTRANSFERASE 10 U/L (12-78); ALBUMIN 3.8 G/DL (3.4-5.0); ALBUMIN/GLOBULIN RATIO 0.9 (1.0-2.7); ALKALINE PHOSPHATASE 76 U/L (46-116); ASPARTATE AMINO TRANSFERASE 22 U/L (15-37); BILIRUBIN,TOTAL 0.6 MG/DL (0.2-1.0)
--- NOTE | 2020-03-16 18:14 | NUR ---
ED Nurse Note: x-ray at bedside.
--- NOTE | 2020-03-16 18:18 | Diagnostic Imaging Report ---
EXAM: CT Head Without Intravenous Contrast CLINICAL HISTORY: PAIN TECHNIQUE: Axial computed tomography images of the head/brain without intravenous contrast. CTDI is 53.4 mGy and DLP is 1125.7 mGy-cm. One or more of the following dose reduction techniques were used: automated exposure control, adjustment of the mA and/or kV according to patient size, use of iterative reconstruction technique. COMPARISON: 01/01/2020. FINDINGS: Brain: Small vessel disease of aging. No hemorrhage. Ventricles: There is prominence of the ventricular system, cortical sulci, basilar cisterns compatible with age related atrophy. Bones/joints: Calvarium is unremarkable barring hyperostosis frontalis. No acute fracture. Soft tissues: Unremarkable. Sinuses: Visualized sinuses are unremarkable. Mastoid air cells: Mastoid air cells are well pneumatized. IMPRESSION: 1. Age-related atrophy and small vessel disease of aging. 2. No acute appearing apology. 3. If there is concern for etiology such as early acute lacunar infarct, magnetic resonance imaging of the brain with diffusion-weighted sequences should be performed for follow-up.
--- NOTE | 2020-03-16 18:36 | Diagnostic Imaging Report ---
EXAM: XR Chest, 1 View CLINICAL HISTORY: COUGH TECHNIQUE: Frontal view of the chest. COMPARISON: 06/22/2018. FINDINGS: Lungs: Hypoaeration of the right lung. Left lung is well aerated. Pleural space: Unremarkable. No pneumothorax. Heart: Cardiomediastinal silhouette unremarkable. Mediastinum: See above. Bones/joints: The ribs are unremarkable. Soft tissues: Soft tissues are unremarkable. Upper abdomen: There is elevation of the right hemidiaphragm to IMPRESSION: 1. Hypoaeration. 2. Elevation of the right hemidiaphragm. 3. No active disease. 4. No pleural effusion.
[2020-03-16 18:46] VITALS: BP 142/71
--- NOTE | 2020-03-16 18:46 | NUR ---
ER DISCHARGE NOTE: Patient is cleared to be discharged per ERMD, pt is aox4, on room air, with stable vital signs. pt's family member was given instructions, brother was able to verbalize understanding, pt id band and iv site removed without complications. pt took all belongings.
== END 2020-03-16 18:46 | disposition home or self-care (01) ==
LOC: EMR 17:44
DX: S01.01XA Laceration without foreign body of scalp, initial encounter (principal); S09.90XA Unspecified injury of head, initial encounter; G20 Parkinson's disease; E11.9 Type 2 diabetes mellitus without complications; I10 Essential (primary) hypertension; F03.90 Unspecified dementia, unspecified severity, without behavioral disturbance, psychotic disturbance, mood disturbance, and anxiety; G81.90 Hemiplegia, unspecified affecting unspecified side; G40.909 Epilepsy, unspecified, not intractable, without status epilepticus; Z88.2 Allergy status to sulfonamides; Z88.6 Allergy status to analgesic agent; Z88.0 Allergy status to penicillin; R00.1 Bradycardia, unspecified; D64.9 Anemia, unspecified; I45.10 Unspecified right bundle-branch block; R00.0 Tachycardia, unspecified; W19.XXXA Unspecified fall, initial encounter; Y92.9 Unspecified place or not applicable; Z23 Encounter for immunization; T14.8XXA Other injury of unspecified body region, initial encounter
CPT/HCPCS: 36415; 70450; 71045; 80053; 84484; 85025; 90471; 90715; 93005; 99284